=== PATIENT | male | born 1975 | race Caucasian/White ===

== ENCOUNTER 2020-07-23 08:01 | Outpatient (NON) | payer OTHER, SELFPAY ==
[2020-07-23 19:20] LABS: SARS-CoV-2 RNA PCR Negative
== END 2020-07-23 08:02 ==
PROVIDERS: Visit Provider Clinical Nurse Specialist
DX: R05 Cough (principal); Z20.828 Contact with and (suspected) exposure to other viral communicable diseases
CPT/HCPCS: 87635; C9803; U0003

== ENCOUNTER 2021-04-01 12:04 | Observation (INO) | payer OTHER, SELFPAY ==
[2021-04-01] VITALS (17 sets, daily range): BP systolic 80–155; BP diastolic 40–96; PULSE 50–126; RESP 10–24; TEMP 36.1–38.3; O2SAT 85–100; BMI 31.6
--- NOTE | ~2021-04-01 | XR_ITS ---
XR chest 2V 04/01/2021 12:50 Indication: Fever and chest pain Procedure: 2 view chest Comparison: 07/25/2017 Findings: There is opacification of the left upper lung zone medially. Status post median sternotomy. Cardiomegaly. Right lung clear. No pneumothorax or pleural effusion. No acute osseous abnormality. Impression: 1: Opacification left upper lung zone which may represent atelectasis and/or pneumonia. Reviewed, dictated and finalized at location A. Impression: 1: Opacification left upper lung zone which may represent atelectasis and/or pn eumonia.
--- NOTE | ~2021-04-01 | CT_ITS ---
EXAMINATION: CTA chest DATE: 04/01/2021 22:24 INDICATION: Chest pain TECHNIQUE: Computed tomography (CT) of the chest was performed with 100 cc Omnipaque 350 intravenous contrast. Automated exposure control and iterative reconstruction technique were employed. Exam dose: 428.18 mGy-cm total exam DLP. COMPARISON: 04/01/2021 AP and lateral chest 08/04/2017 PA and lateral chest FINDINGS: Status post sternotomy. There is extensive consolidation in the apical posterior left upper lobe, with air bronchograms and n o evidence of obstructing endobronchial lesion. The findings suggest extensive left upper lobe consol idating pneumonia. Continued follow-up is recommended to ensure clearing. There is mild infiltrate or atelectasis in the dependent left lower lobe and mild discoid atelectasis in the dependent right lower lobe. Calcified right upper lobe pulmonary granuloma. Calcified right hilar and subcarinal nodes. Mildly prominent left hilar and mediastinal lymph nodes may be reactive. Heart size appears within normal range. No pericardial effusion. There is a small left pleural effusi on. No thoracic aortic aneurysm or dissection. Diffuse hepatic steatosis. Diffuse idiopathic skeletal hyperostosis of the lower thoracic spine. IMPRESSION: Extensive left upper lobe consolidation, likely secondary to pneumonia. Continued radiog raphic follow-up is recommended to ensure clearing Reviewed, dictated and finalized at [facility]. Reviewed, dictated and finalized at location A. IMPRESSION: Extensive left upper lobe consolidation, likely secondary to pneum onia. Continued radiographic follow-up is recommended to ensure clearing
[2021-04-01 12:50] LABS: Basophils Percent Auto 0.2 % (0.2-1.2); Eosinophils Absolute Auto 0.1 K/mm3 (0-0.3); Hematocrit 46.2 % (42.0-52.0); Hemoglobin 15.2 g/dL (14.0-18.0); Immature Granulocyte Absolute 0.05 K/mm3 (0.00-0.031); Immature Granulocyte Percent A 0.4 % (0-0.5); Lymphocytes Absolute Auto 0.76 K/mm3 (0.9-3.2); Lymphocytes Percent Auto 5.6 % (18.3-44.2); Mean Corpuscular HGB Conc 32.9 g/dl (32-36); Mean Corpuscular Hemoglobin 30.3 pg (26-34); Mean Platelet Volume 10.8 fl (7.4-10.4); Monocytes Absolute Auto 0.3 K/mm3 (0.1-0.6); Monocytes Percent Auto 2.2 % (2.6-8.5); Neutrophils Absolute Auto 12.2 K/mm3 (1.3-6.7); Neutrophils Percent Auto 90.6 % (45.5-73.1); Platelet Count Result 188 k/mm3 (150-375); Red Blood Count 5.02 M/mm3 (4.6-6.20); Red Cell Distribution Width 12.9 % (11.5-14.5); White Blood Count 13.5 K/mm3 (4.5-10.0)
--- NOTE | 2021-04-01 13:02 | ECG_ITS ---
Measurements Intervals [place] Rate: 120 P: 79 AL: 108 QRS: 130 QRSD: 90 T: 86 QT: 339 QTc: 480 Interpretive Statements SINUS TACHYCARDIA WITH SHORT AL INTERVAL INCOMPLETE RIGHT BUNDLE BRANCH BLOCK BORDERLINE R WAVE PROGRESSION, ANTERIOR LEADS HIGH LATERAL INFARCT, AGE INDETERMINATE BASELINE ARTIFACT- I, II, III, AVR, AVL, AVF, V1 ABNORMAL ECG Electronically Signed On 04-01-2021 13:13:09 CDT by Og Minor D.O.
--- NOTE | 2021-04-01 13:05 | ED.GENADULT ---
HPI - General Adult General Chief complaint: Fever Stated complaint: chest pain Time Seen by Provider: 04/01/21 12:05 Source: patient History of Present Illness HPI narrative: Patient is a 46 y/o male complaining of chest pain starting earlier today. He describes his pain as pressure and rates it as 8/10. He took Aspirin, which did not help with his pain. He also has headache, back pain and difficulty with urination. He is not aware that he has a fever prior to arrival. He has no cough or SOB. Related Data Home Medications Medication Instructions Recorded Confirmed No Home Medications 07/22/20 07/22/20 Allergies Allergy/AdvReac Type Severity Reaction Status Date / Time ciprofloxacin Allergy Severe SWELLING Verified 04/01/21 16:59 NSAIDS (Non-Steroidal Allergy Unknown Swelling Verified 04/01/21 16:59 Anti-Inflamma Review of Systems Constitutional: Constitutional: Denies chills, Denies fever(s), Reports headache(s), Reports malaise and Denies weakness Eyes: Eyes: Denies blurry vision ENT: Reports headache(s) and Denies neck pain Cardiovascular: Cardiovascular: Reports chest pain and Denies dyspnea Respiratory: Respiratory: Denies cough and Denies dyspnea Gastrointestinal: Gastrointestinal: Denies abdominal pain, Denies diarrhea, Denies nausea and Denies vomiting Genitourinary: Genitourinary: Denies hematuria and Reports dysuria Musculoskeletal: Musculoskeletal: Denies back pain and Denies neck pain Neurologic: Reports headache(s) and Denies weakness [facility] Surgical History Surgical History History of ankle surgery Right Family History Family History (Updated 04/01/21 @ 16:42 by Gerard Clarke RN) Mother Breast cancer Hypertension Father Coronary artery disease Social History Social History Smoking packs per day: 0.5 Smoking cigarettes per day: 10.0 Years smoked: 20 Smoking pack-years: 10.00 Smoking status: Current every day smoker Alcohol intake: current Drinks per week: 14 Substance use type: marijuana Other substance usage details: gram/day Last use: Tuesday Gender identity (if verbalized by the patient): Male Spiritual care concerns: No Exam Const: General: no acute distress and well developed Orientation/consciousness: oriented to person, oriented to place, oriented to time and patient oriented x3 HENMT: Head: normocephalic Ears: external ears normal General nose exam: Normal external nose present Eyes: General: appearance normal, both eyes and all related structures Conjunctivae: conjunctivae normal Neck: Neck: normal visual inspection and full ROM Chest: Chest palpation & inspection: normal inspection of the chest and no tenderness Resp: Effort & Inspection: normal respiratory effort Auscultation: clear to auscultation bilaterally Cardio: Rate: tachycardic Rhythm: regular rhythm GI: GI Palp: No abdominal tenderness and Yes Soft to palpation Skin: General skin exam: normal color and turgor normal Neuro: General: oriented to person, oriented to place, oriented to time and patient oriented x3 Cognition (Neuro): normal cognition Extrem: General: normal to inspection, full ROM and no pedal edema Psych: Appearance: grossly normal Mental Status: mental status grossly normal Affect: normal affect Course Reevaluation(s) Reevaluation #1: Rechecked. Patient still complains of severe headache. Discussed with patient about LP to r/o meningitis. Patient declined. 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 Will continue to observe. Date: 04/01/21 Time: 14:35 Vital Signs Vital signs: Vital Signs Temperature 38.3 C H 04/01/21 12:15 Pulse Rate 126 H 04/01/21 12:15 Respiratory Rate 20 04/01/21 12:15 Blood Pressure 155/96 H 04/01/21 12:15 Pulse Oximetry 100 04/01/21 12:15 Temperature 36.1 C L 04/01/21 16
[2021-04-01 13:09] LABS: Lactic Acid Reflex 2.1 mmol/L (0.7-2.1)
[2021-04-01 13:21] LABS: Troponin I < 0.012 ng/mL (0.000-0.034)
[2021-04-01 13:28] LABS: INR 0.9; Prothrombin Time 12.5 Seconds (11.1-14.7)
[2021-04-01 13:29] LABS: Partial Thromboplastin Time 23.7 SECONDS (22.3-36.8)
[2021-04-01 13:56] LABS: Add Urine Microscopic? YES; Appearance Urine Clear (Clear); Bacteria Urine 1+ /hpf; Bilirubin Urine Negative (Negative); Blood Urine Negative (Negative); Color Urine Yellow (Yellow); Glucose Urine UA Negative (Negative); Ketones Urine Negative (Negative); Leukocyte Esterase Ur Negative LEU/UL (Negative); Mucus Urine Rare /lpf; Nitrate Urine Negative (Negative); Protein Urine 1+ mg/dL (Negative); Specific Grav Ur 1.018 (1.001-1.035); Urobilinogen Urine Negative mg/dL (<2.0); WBC Urine 0-3 /hpf
[2021-04-01 14:13] LABS: Alanine Aminotransferase 26 U/L (4-50); Albumin Level 4.4 g/dL (3.5-5.1); Alkaline Phosphatase 69 U/L (38-126); Anion Gap 11 mmol/L (8-16); Aspartate Amino Transferase 41 U/L (17-59); Bilirubin,Total 0.7 mg/dL (0.2-1.3); Blood Urea Nitrogen 17 mg/dL (9-20); Calcium 9.3 mg/dL (8.4-10.2); Carbon Dioxide 24 mmol/L (22-30); Chloride 99 mmol/L (98-107); Estimated CRCL calculation 77 ml/min; Estimated Glomerular Filt Rate > 60; Glucose 97 mg/dL (75-110); Potassium 4.7 mmol/L (3.4-5.0); Sodium 134 mmol/L (137-145)
[2021-04-01] MEDS: ACETAMINOPHEN 325 MG TABLET 650 MG PO (14:46)
[2021-04-01] MEDS: SODIUM CHLORIDE 0.9% IV 1,000 ML 999 ML IV CONT ×2 (14:47→20:50)
[2021-04-01 15:48] LABS: Reflex Lactic Acid Yes or No Add Lactic
--- NOTE | 2021-04-01 19:13 | ECG_ITS ---
Measurements Intervals [place] Rate: 116 P: 79 ID: 140 QRS: 134 QRSD: 90 T: 144 QT: 296 QTc: 412 Interpretive Statements SINUS TACHYCARDIA POSSIBLE LEFT ATRIAL ENLARGEMENT INCOMPLETE RIGHT BUNDLE BRANCH BLOCK BORDERLINE R WAVE PROGRESSION, ANTERIOR LEADS HIGH LATERAL INFARCT, AGE INDETERMINATE BASELINE ARTIFACT- I, II, III, AVR, AVL, AVF, V1 ABNORMAL ECG Electronically Signed On 04-01-2021 19:42:49 CDT by Og Minor D.O.
--- NOTE | 2021-04-01 19:16 | PC.NURSE ---
Pt complained of chest pain. Notified Rach Walker who asked for orders of baseline trop, 3 and 6 hour trops and a stat EKG. She stated she would be in to see him shortly.
[2021-04-01 20:10] LABS: Troponin I < 0.012 ng/mL (0.000-0.034)
--- NOTE | 2021-04-01 20:30 | PM.IMHP ---
H&P: HPI History of Present Illness Date/Time: 04/01/21 20:30 Chief Complaint: fever and chest pain Narrative: Male with past medical history multi-vessel coronary artery disease status post CABG who presented to the ER with fever and chest pain. The patient reported that started on the night of the he began feeling feverish. He developed the left-sided chest pain that is pressure-like in nature and radiated through to his back and down his left arm. He reported that his shoulder hurts so bad that he did not want to move it. However moving his shoulder does not seem to worsen the pain. He reports that he has been nauseated since last night but has not been having any vomiting. He has not noticed a loss of sense of taste or smell. He does have an occasional cough that has been productive of brown sputum. He continues to smoke at least a half a pack of cigarettes per day. He denies any known COVID exposures. He has not had the COVID vaccine. He denies any recent vomiting. He has been having chronic constipation for the last several years. He has had several years of increased urinary frequency difficulty starting his urinary stream and dribbling of urine. He felt his usual health on the day of the and actually spent 5 hours as side putting in a pool. He drink plenty of fluids. On arrival to the ER the patient's temperature was 101?. He a was tachycardic and tachypneic. To have episodes of breath holding due to his chest discomfort. He received a liter of IV fluids in the ER as well as azithromycin and Rocephin. After he arrived to the medical floor the patient became hypoxic with oxygen saturations down to 85%. His blood pressures dropped to the mid 90s systolic on his right arm. A 2nd normal saline bolus had already been ordered and was just starting to infuse at the time of the vitals. When he arrived to the medical floor he was reporting 9/10 chest pain. The pain was not pleuritic in nature. Initially did seem to have some reproducible chest pain to palpation but on repeat exam he denied reproducibility. 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 Review of Systems Review of Systems: Narrative: 12 systems were reviewed with pertinent positives and negatives per HPI. Except as documented in the HPI, all other systems were reviewed and are negative. [facility] Past Medical History Medical History (Updated 04/01/21 @ 22:45 by Nasrin Hutton DO) Coronary artery disease Essential hypertension Hyperlipidemia Ischemic cardiomyopathy Echocardiogram July 2017 EF of 50% with hypokinetic apical and anterior segment, diastolic dysfunction present, EF on cardiac catheterization July 2017 was 30% Non-adherence to medical treatment Paroxysmal atrial fibrillation Tobacco use disorder, continuous Surgical History Surgical History (Updated 04/01/21 @ 22:43 by Nasrin Hutton DO) History of ankle surgery Right History of cardiac catheterization July 2012, single-vessel coronary artery disease with subtotal ostial stenosis of LAD, cardiac catheterization June 2017 2 cardiac stents placed at [facility], cardiac catheterization July 2017 at [facility] 80% diffuse stenosis proximal LAD, 100% stenosis of recently paste saphenous vein graft/diagonal stents secondary to thrombus (non adherent to Brilinta) 100% thrombotic occlusion of saphenous vein graft to diagonal branch with stent thrombus, SHEKHAR to obtuse marginal known to be occluded from previous angiogram, patent WOODY to LAD, History of heart artery stent x5 most recent cardiac catheterization July 2017 demonstrated high-grade stenosis proximal segment of the LAD with occluded diagonal stents, patent ramus and left circumflex stents, RCA dominant with no significant stenosis, saphenous vein graft to diagonal occluded with heavy thrombus burden with occluded stents in the saphenous vein graft, woody to LAD patent, SHEKHAR
[2021-04-01 20:51] LABS: Creatine Kinase 90 U/L (55-170)
[2021-04-01 21:12] LABS: Ethanol < 10 mg/dL (<10)
[2021-04-01] MEDS: MORPHINE SULFATE (*CRX) 2 MG/ML INJ IV PUSH (21:22)
[2021-04-01 22:02] LABS: Barbiturate Screen Urine Negative (Negative); Benzodiazepines Screen Urine Negative (Negative)
[2021-04-01 22:30] LABS: Troponin I < 0.012 ng/mL (0.000-0.034)
[2021-04-01 22:40] LABS: Cannabinoid Screen Urine Positive (Negative); Cocaine Screen Urine Negative (Negative); Methadone Screen Urine Negative (Negative); Opiate Screen Urine Negative (Negative); Phencyclidine Screen Urine Negative (Negative)
[2021-04-01 23:23] LABS: Glucose Point of Care 88 mg/dl (65-105)
[2021-04-01] MEDS: SODIUM CHLORIDE 0.9% IV 1,000 ML 125 ML IV CONT (23:35)
[2021-04-02] VITALS (14 sets, daily range): BP systolic 109–131; BP diastolic 62–80; PULSE 88–120; RESP 18–22; TEMP 36.6–37.3; O2SAT 94–100
[2021-04-02 01:39] LABS: Troponin I < 0.012 ng/mL (0.000-0.034)
[2021-04-02] MEDS: IPRATROPIUM BR 0.02% INH SOLN 0.5 MG/2.5 ML VIAL INHALATION ×3 (02:06→14:07)
[2021-04-02] MEDS: SODIUM CHLORIDE 0.9% IV 1,000 ML 125 ML IV CONT ×2 (06:14→21:55)
[2021-04-02 06:15] LABS: Hematocrit 35.9 % (42.0-52.0); Hemoglobin 12.3 g/dL (14.0-18.0); Mean Corpuscular HGB Conc 34.3 g/dl (32-36); Mean Corpuscular Hemoglobin 30.3 pg (26-34); Mean Corpuscular Volume 88.4 fl (80-100); Mean Platelet Volume 11.1 fl (7.4-10.4); Platelet Count Result 146 k/mm3 (150-375); Red Blood Count 4.06 M/mm3 (4.6-6.20); Red Cell Distribution Width 12.9 % (11.5-14.5); White Blood Count 16.8 K/mm3 (4.5-10.0)
[2021-04-02 06:36] LABS: Anion Gap 7 mmol/L (8-16); Blood Urea Nitrogen 11 mg/dL (9-20); Calcium 8.2 mg/dL (8.4-10.2); Carbon Dioxide 22 mmol/L (22-30); Chloride 104 mmol/L (98-107); Cholesterol 103 mg/dL (0-200); Estimated CRCL calculation 84 ml/min; Estimated Glomerular Filt Rate > 60; Glucose 110 mg/dL (75-110); HDL Direct 46 mg/dL; Potassium 3.9 mmol/L (3.4-5.0); Sodium 133 mmol/L (137-145); Triglycerides 55 mg/dL (<150)
[2021-04-02 06:45] LABS: LDL Cholesterol Direct 36 mg/dL
--- NOTE | 2021-04-02 08:15 | ADMGEN ---
This patient, Steve Bernard, was admitted to [facility] Surg Room 326-01 at 1615 04/01/21. Patient/family oriented to hospital policies and general routines including ID bracelet, bed and alarms, visiting hours, pain management, procedures, bathroom and other care routines, personal items, smoking policy, room service/diet, and visiting hours. Information on how to activate the Rapid Response Team has been discussed. Patient/Family are encouraged to report perceived risks to care and to ask questions if they do not understand what they are told or what they should do.
[2021-04-02] MEDS: TAMSULOSIN HCL 0.4 MG CAPSULE PO (09:16)
[2021-04-02] MEDS: ASPIRIN 81 MG CHEWABLE TABLET PO (09:16)
[2021-04-02] MEDS: CLOPIDOGREL BISULFATE 75 MG TABLET PO (09:16)
[2021-04-02] MEDS: ACETAMINOPHEN 325 MG TABLET 650 MG PO ×2 (09:16→21:52)
[2021-04-02] MEDS: ENOXAPARIN 40 MG/0.4 ML SYRINGE SUB-Q (09:19)
--- NOTE | 2021-04-02 10:27 | PM.IMPN ---
Progress Note: A&P Assessment and Plan (1) Acute respiratory failure with hypoxia: Code(s): J96.01 - Acute respiratory failure with hypoxia Status: Acute Assessment and Plan: Patient has acute hypoxic respiratory failure due to underlying pneumonia. He may have some underlying COPD given his tobacco use history. He was hypoxic down to 85% and required 2 L supplemental O2. Currently been weaned to room air and maintaining adequate oxygen saturations. Continue scheduled nebulizer treatments with Xopenex and Atrovent. Supplemental oxygen available as needed with goal saturation 92% or above Additional plan as outlined below He will benefit from outpatient pulmonary function testing. (2) Pneumonia of left upper lobe due to infectious organism: Code(s): J18.9 - Pneumonia, unspecified organism Status: Acute Assessment and Plan: CXR with opacification of left upper lung zone, also evident on CTA with extensive left upper lobe consolidation. Continue empiric antibiotic therapy with ceftriaxone and azithromycin Isolation precautions with COVID test pending Will check urinary Legionella and pneumococcal antigens. Supportive care to include antipyretics, expectorants, bronchodilators, incentive spirometry Recommendations for repeat CXR in 1 month based on extensive consolidation noted on CTA. (3) Sepsis: Qualifiers: Acute respiratory failure type: with hypoxia Sepsis acute organ dysfunction status: with acute organ dysfunction Sepsis type: sepsis due to unspecified organism Severe sepsis acute organ dysfunction type: acute respiratory failure Severe sepsis shock status: without septic shock Qualified Code(s): A41.9 - Sepsis, unspecified organism; R65.20 - Severe sepsis without septic shock; J96.01 - Acute respiratory failure with hypoxia Code(s): A41.9 - Sepsis, unspecified organism Status: Acute Assessment and Plan: The patient has sepsis based on criteria including lactic acidosis, leukocytosis, tachypnea, tachycardia and fever (Tmax 101?). Source of infection is pneumonia. The patient's blood pressures improved with 2nd fluid bolus and currently stable with last BP 117/80. Lactic improved to 2.0. He has been afebrile today. Blood cultures are pending. Will discontinue IV fluids as vital signs have improved, he is tolerating oral intake, and has edema of upper extremities. Monitor vital signs, urine output, and labs (4) Chest pain: Qualifiers: Chest pain type: unspecified Qualified Code(s): R07.9 - Chest pain, unspecified Code(s): R07.9 - Chest pain, unspecified Status: Acute Assessment and Plan: Resolved. Chest pain is likely due to left-sided pneumonia. Troponin negative x3. Repeat EKG with no significant change from baseline. CTA was performed given chest pain in combination with hypoxia and tachycardia, results discussed with radiologist who reports images negative for PE with decreased sensitivity in small subsegmental pulmonary arteries. He has history of CAD and is not compliant with medication regimen. Monitor clinically Resume dual anti-platelet therapy with aspirin and Plavix (5) Tobacco use disorder, continuous: Code(s): F17.209 - Nicotine dependence, unspecified, with unspecified nicotine-induced disorders Status: Acute Assessment and Plan: Reports smoking 1/2 pack per day. Declines need for nicotine patch at this time. 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 (7) BPH (benign prostatic hyperplasia): Qualifiers: Lower urinary tract symptom presence:
[2021-04-02 17:59] LABS: SARS-CoV-2 RNA PCR Negative
[2021-04-02] MEDS: guaiFENesin 12 HR 600 MG TABCR PO (21:51)
[2021-04-03 06:00] VITALS: BP 143/83; PULSE 88; RESP 20; TEMP 36.6; O2SAT 98
[2021-04-03] MEDS: SODIUM CHLORIDE 0.9% IV 1,000 ML 125 ML IV CONT (06:08)
[2021-04-03 06:39] LABS: Hematocrit 37.2 % (42.0-52.0); Hemoglobin 12.4 g/dL (14.0-18.0); Mean Corpuscular HGB Conc 33.3 g/dl (32-36); Mean Corpuscular Hemoglobin 29.8 pg (26-34); Mean Corpuscular Volume 89.4 fl (80-100); Mean Platelet Volume 10.8 fl (7.4-10.4); Platelet Count Result 151 k/mm3 (150-375); Red Blood Count 4.16 M/mm3 (4.6-6.20); White Blood Count 11.2 K/mm3 (4.5-10.0)
[2021-04-03 06:58] LABS: Alanine Aminotransferase 33 U/L (4-50); Albumin Level 3.4 g/dL (3.5-5.1); Alkaline Phosphatase 72 U/L (38-126); Anion Gap 8 mmol/L (8-16); Aspartate Amino Transferase 28 U/L (17-59); Bilirubin,Total 0.5 mg/dL (0.2-1.3); Blood Urea Nitrogen 8 mg/dL (9-20); Calcium 8.5 mg/dL (8.4-10.2); Carbon Dioxide 21 mmol/L (22-30); Chloride 106 mmol/L (98-107); Estimated CRCL calculation 93 ml/min; Estimated Glomerular Filt Rate > 60; Glucose 132 mg/dL (75-110); Potassium 4.2 mmol/L (3.4-5.0); Sodium 135 mmol/L (137-145)
--- NOTE | 2021-04-03 07:55 | PCRCNOTE ---
Pt has been ref tx's. He wants them dc'd.
[2021-04-03] MEDS: ASPIRIN 81 MG CHEWABLE TABLET PO (09:33)
[2021-04-03] MEDS: TAMSULOSIN HCL 0.4 MG CAPSULE PO (09:33)
[2021-04-03] MEDS: guaiFENesin 12 HR 600 MG TABCR PO (09:33)
[2021-04-03] MEDS: CLOPIDOGREL BISULFATE 75 MG TABLET PO (09:33)
[2021-04-03] MEDS: ENOXAPARIN 40 MG/0.4 ML SYRINGE SUB-Q (09:34)
--- NOTE | 2021-04-03 10:47 | PM.DS ---
DS: Admitting Diagnosis Admitting Diagnosis Admitting Diagnosis: Community acquired pneumonia DS: Discharge Diagnosis Discharge Diagnosis (1) Acute respiratory failure with hypoxia: Code(s): J96.01 - Acute respiratory failure with hypoxia Status: Acute Assessment and Plan: Presented with acute hypoxic respiratory failure due to underlying pneumonia. He may have underlying COPD given his tobacco use history. He was hypoxic down to 85% and required 2 L supplemental O2, which was weaned to room air and he maintained adequate oxygen saturations on room air. Treated with nebulized breathing treatments. Recommend outpatient pulmonary function testing. (2) Pneumonia of left upper lobe due to infectious organism: Code(s): J18.9 - Pneumonia, unspecified organism Status: Acute Assessment and Plan: CXR with opacification of left upper lung zone, also evident on CTA with extensive left upper lobe consolidation. He was treated with empiric ceftriaxone and azithromycin. COVID test negative. Supportive care provided including expectorants, bronchodilators, and incentive spirometry. He will continue PO azithromycin and augmentin as an outpatient. Recommendations for repeat CXR in 1 month based on extensive consolidation noted on CTA. (3) Sepsis: Qualifiers: Acute respiratory failure type: with hypoxia Sepsis acute organ dysfunction status: with acute organ dysfunction Sepsis type: sepsis due to unspecified organism Severe sepsis acute organ dysfunction type: acute respiratory failure Severe sepsis shock status: without septic shock Qualified Code(s): A41.9 - Sepsis, unspecified organism; R65.20 - Severe sepsis without septic shock; J96.01 - Acute respiratory failure with hypoxia Code(s): A41.9 - Sepsis, unspecified organism Status: Acute Assessment and Plan: Resolved. The patient had sepsis based on criteria including lactic acidosis, leukocytosis, tachypnea, tachycardia and fever (Tmax 101?). Source of infection was pneumonia. The patient's blood pressures stabilized with fluid bolus. Fever resolved. Leukocytosis improved. Lactic improved to 2.0. Preliminary blood cultures negative to date and final cultures will be monitored. (4) Chest pain: Qualifiers: Chest pain type: unspecified Qualified Code(s): R07.9 - Chest pain, unspecified Code(s): R07.9 - Chest pain, unspecified Status: Acute Assessment and Plan: Resolved. Chest pain was likely due to left-sided pneumonia. Troponin negative x3. Repeat EKG with no significant change from baseline. CTA was performed given chest pain in combination with hypoxia and tachycardia, results discussed with radiologist who reports images negative for PE with decreased sensitivity in small subsegmental pulmonary arteries. (5) Coronary artery disease: Code(s): I25.10 - Atherosclerotic heart disease of [place] coronary artery without angina pectoris Status: Inactive Assessment and Plan: He has extensive cardiac history including CABG and multiple stents. Last cardiology follow-up was February 2019. He had not been compliant with his medications. I spoke with his workers compensation adjuster office who recommended continuing aspirin. He will need to follow-up with his workers compensation adjuster as soon as possible. (6) Tobacco use disorder, continuous: Code(s): F17.209 - Nicotine dependence, unspecified, with unspecified nicotine-induced disorders Status: Acute Assessment and Plan: Reports smoking 1/2 pack per day. Declined need for nicotine patch during hospitalization. Discussed smoking cessation at length and he verbalized understanding. (7) Non-adherence to medical treatment: Code(s): Z91.19 - Patient's noncompliance with other medical treatment and regimen Status: Acute Assessment and Plan: As above. Reinforced importance of adhering to medication regimen. (8)
== END 2021-04-03 12:00 | disposition home or self-care (01) ==
LOC: ANHED 13:02 → ANH3MEDSUR 15:27
PROVIDERS: Internal Medicine; Physician Assistant; Admitting Provider Internal Medicine; Emergency Provider Emergency Medicine; PCP Internal Medicine; Visit Provider Family Medicine
DX: J18.9 Pneumonia, unspecified organism (principal); J96.01 Acute respiratory failure with hypoxia; I25.10 Atherosclerotic heart disease of native coronary artery without angina pectoris; E78.5 Hyperlipidemia, unspecified; F12.90 Cannabis use, unspecified, uncomplicated; F17.290 Nicotine dependence, other tobacco product, uncomplicated; I25.5 Ischemic cardiomyopathy; I10 Essential (primary) hypertension; I48.91 Unspecified atrial fibrillation; N40.1 Benign prostatic hyperplasia with lower urinary tract symptoms; R33.8 Other retention of urine; Z79.02 Long term (current) use of antithrombotics/antiplatelets; Z95.1 Presence of aortocoronary bypass graft; Z91.19 Patient's noncompliance with other medical treatment and regimen; Z20.822 Contact with and (suspected) exposure to COVID-19
CPT/HCPCS: 36415; 71046; 71275; 80048; 80053; 80061; 80307; 81001; 82550; 82948; 83605; 84484; 85025; 85027; 85610; 85730; 86140; 87040; 93005; 94640; 96360; 96361; 96365; 96367; 96372; 96375; 99285; A9270; C9803; G0378; J0456; J0696; J1650; J2270; J7030; Q9967; U0003; U0005

== ENCOUNTER 2021-04-19 11:55 | Emergency (ER) | payer OTHER, SELFPAY ==
[2021-04-19 12:02] VITALS: BP 126/83; PULSE 99; RESP 16; TEMP 36.4; O2SAT 99
--- NOTE | 2021-04-19 12:05 | ED.SKABFB ---
HPI - Skin/Abscess/Foreign Bdy General Chief complaint: Skin/Abscess/Foreign Body Stated complaint: rash Time Seen by Provider: 04/19/21 12:05 Source: patient and RN notes reviewed Mode of arrival: ambulatory Limitations: no limitations History of Present Illness HPI narrative: 46-year-old male presents concern for rash. Reports generalized itchy rash after being exposed to poison genna or sumac. Reports rash started yesterday and spread to bilateral upper extremities, lower extremities, torso, face. He denies any trouble breathing, trouble swallowing, swollen lips, swollen tongue, fever, nausea, vomiting, diarrhea. MD complaint: rash Related Data Allergies Allergy/AdvReac Type Severity Reaction Status Date / Time ciprofloxacin Allergy Severe SWELLING Verified 04/19/21 12:07 NSAIDS (Non-Steroidal Allergy Unknown Swelling Verified 04/19/21 12:07 Anti-Inflamma Review of Systems Review of Systems: Narrative: CONSTITUTIONAL: Denies malaise, chills, sweats, or fever. EYES: Denies visual changes, redness, or discharge. ENT: Denies rhinorrhea, congestion, swollen lips, swollen tongue CARDIOVASCULAR: Denies chest pain, palpitations, or edema. RESPIRATORY: Denies cough or dyspnea. GASTROINTESTINAL: Denies abdominal pain, nausea, vomiting, diarrhea SKIN: Reports generalized itchy rash MUSCULOSKELETAL: Denies myalgia. All systems reviewed & are unremarkable except as noted in HPI and below PMFSH Past Medical History Medical History (Updated 04/19/21 @ 12:13 by Nydia Anderson NP) Coronary artery disease Essential hypertension Hyperlipidemia Ischemic cardiomyopathy Echocardiogram July 2017 EF of 50% with hypokinetic apical and anterior segment, diastolic dysfunction present, EF on cardiac catheterization July 2017 was 30% Non-adherence to medical treatment Paroxysmal atrial fibrillation Tobacco use disorder, continuous Surgical History Surgical History (Updated 04/13/21 @ 08:46 by Casandra Arndt NP) History of ankle surgery Right History of cardiac catheterization July 2012, single-vessel coronary artery disease with subtotal ostial stenosis of LAD, cardiac catheterization June 2017 2 cardiac stents placed at seen at the [facility] in [place], cardiac catheterization July 2017 at [facility] 80% diffuse stenosis proximal LAD, 100% stenosis of recently paste saphenous vein graft/diagonal stents secondary to thrombus (non adherent to Brilinta) 100% thrombotic occlusion of saphenous vein graft to diagonal branch with stent thrombus, SHEKHAR to obtuse marginal known to be occluded from previous angiogram, patent WOODY to LAD, History of heart artery stent x5 most recent cardiac catheterization July 2017 demonstrated high-grade stenosis proximal segment of the LAD with occluded diagonal stents, patent ramus and left circumflex stents, RCA dominant with no significant stenosis, saphenous vein graft to diagonal occluded with heavy thrombus burden with occluded stents in the saphenous vein graft, woody to LAD patent, SHEKHAR to obtuse marginal known to be occluded from previous angiogram severe left ventricular systolic dysfunction with EF of 30% History of repair of ACL S/P CABG (coronary artery bypass graft) (~2008) 3 vessel; performed in [place], saphenous vein graft to diagonal, WOODY to LAD, SHEKHAR to obtuse marginal Family History Family History Mother Breast cancer Hypertension Father Coronary artery disease Social History Social History (Updated 04/01/21 @ 22:52 by Nasrin Hutton DO) Social History: He lives in [place] with his of 20 years. They have daughters who are twins and her approximately 8 years old. He has smoked since he was a teenager and continues to do so. He smokes marijuana on a somewhat frequent basis. He has at least moderate alcohol use. Primary care physician: None Code status: Full code Surrogate lorna
== END 2021-04-19 12:27 | disposition home or self-care (01) ==
PROVIDERS: Emergency Provider Nurse Practitioner; PCP Internal Medicine
DX: L24.7 Irritant contact dermatitis due to plants, except food (principal); F17.210 Nicotine dependence, cigarettes, uncomplicated; I25.10 Atherosclerotic heart disease of native coronary artery without angina pectoris; I10 Essential (primary) hypertension; E78.5 Hyperlipidemia, unspecified; I48.91 Unspecified atrial fibrillation; I25.5 Ischemic cardiomyopathy
CPT/HCPCS: 99213; G0463

== ENCOUNTER 2021-05-14 11:54 | Outpatient (CLI) | payer OTHER, SELFPAY ==
--- NOTE | ~2021-05-14 | XR_ITS ---
EXAMINATION: XR chest 2V 05/14/2021 13:31 INDICATION: Shortness of breath. Pneumonia. PROCEDURE: 2 view chest COMPARISON: Comparison to multiple prior studies sequentially, with oldest reviewed study dated 04/02. FINDINGS: The lungs are clear. The cardiomediastinal silhouette is within normal limits. There are no pleural effusions. There is no pneumothorax suspected. Calcified granuloma right upper chest. Th ere are median sternotomy wires. IMPRESSION: 1: NO ACUTE CARDIOPULMONARY DISEASE. Reviewed, dictated and finalized at location A.
[2021-05-14 12:08] LABS: Basophils Absolute Auto 0.1 K/mm3 (0.0-0.1); Eosinophils Absolute Auto 0.4 K/mm3 (0-0.3); Hematocrit 45.2 % (42.0-52.0); Hemoglobin 14.8 g/dL (14.0-18.0); Immature Granulocyte Absolute 0.01 K/mm3 (0.00-0.031); Immature Granulocyte Percent A 0.1 % (0-0.5); Lymphocytes Absolute Auto 2.34 K/mm3 (0.9-3.2); Lymphocytes Percent Auto 32.9 % (18.3-44.2); Mean Corpuscular HGB Conc 32.7 g/dl (32-36); Mean Corpuscular Hemoglobin 29.8 pg (26-34); Mean Corpuscular Volume 90.9 fl (80-100); Mean Platelet Volume 10.2 fl (7.4-10.4); Monocytes Absolute Auto 0.6 K/mm3 (0.1-0.6); Monocytes Percent Auto 7.7 % (2.6-8.5); Neutrophils Absolute Auto 3.7 K/mm3 (1.3-6.7); Neutrophils Percent Auto 52.3 % (45.5-73.1); Platelet Count Result 218 k/mm3 (150-375); Red Blood Count 4.97 M/mm3 (4.6-6.20); Red Cell Distribution Width 13.4 % (11.5-14.5); White Blood Count 7.1 K/mm3 (4.5-10.0)
[2021-05-14 12:17] LABS: Alanine Aminotransferase 19 U/L (4-50); Albumin Level 4.1 g/dL (3.5-5.1); Alkaline Phosphatase 69 U/L (38-126); Anion Gap 9 mmol/L (8-16); Aspartate Amino Transferase 23 U/L (17-59); Bilirubin,Total 0.8 mg/dL (0.2-1.3); Blood Urea Nitrogen 16 mg/dL (9-20); Calcium 9.2 mg/dL (8.4-10.2); Carbon Dioxide 25 mmol/L (22-30); Chloride 105 mmol/L (98-107); Cholesterol 178 mg/dL (0-200); Estimated Glomerular Filt Rate > 60; Glucose 116 mg/dL (65-110); HDL Direct 45 mg/dL; Potassium 4.6 mmol/L (3.4-5.0); Sodium 139 mmol/L (137-145); Triglycerides 110 mg/dL (<150)
[2021-05-14 12:34] LABS: LDL Cholesterol Direct 112 mg/dL
[2021-05-14 13:19] LABS: Prostate Specific Antigen 0.9 ng/mL (< OR = 4.0)
--- NOTE | 2021-05-14 18:12 | WPDPFTINT ---
PFT Procedure Performed PFT Procedure Performed Plethysmography (Lung Vol) Diffusing Cap (DLCO) Flow Vol Loop Spirometry w/o Bronchodil PFT Interpretation This is a pulmonary function test with spirometry, plethysmography and diffusing capacity. The test was performed and results interpreted in accordance with the 2019 and 2005 ATS/ERS Task Force guidelines respectively using the Global Lung Function Initiative-2012 reference equations. Patient demonstrated good effort and cooperation. Reproducibility criteria were met. The quality of the spirometry maneuver was Grade B. Findings: Spirometry: The contour the inspiratory and expiratory flow tracing are normal. The FVC is 4.21 L, 95% predicted. The FEV1 is 2.99 L, 84% predicted. The FEV1: FVC ratio 71%. plethysmography: The total lung capacity is 7.79 L, 126% predicted. The functional residual capacity is 4.63 L, 151% predicted. The residual volume is 3.49 L, 198% predicted. diffusing capacity: The absolute diffusion capacity is 21.3, 72% predicted. The diffusing capacity corrected for alveolar volume is 4.00, 82% predicted. Impression: There is a mild obstructive abnormality. The increase in residual volume is consistent with air trapping from an obstructive abnormality. Hyperinflation is present is demonstrated by the increase in functional residual capacity and is consistent with an obstructive abnormality. The absolute diffusing capacity is mildly decreased and normalizes when corrected for alveolar volume. There are no prior studies for comparison
== END 2021-05-14 11:55 | disposition home or self-care (01) ==
PROVIDERS: PCP Internal Medicine; Visit Provider Nurse Practitioner
DX: Z13.220 Encounter for screening for lipoid disorders (principal); N40.1 Benign prostatic hyperplasia with lower urinary tract symptoms; R33.8 Other retention of urine; J18.9 Pneumonia, unspecified organism; R06.02 Shortness of breath
CPT/HCPCS: 36415; 71046; 80053; 80061; 84153; 85025; 94375; 94726; 94729

== ENCOUNTER 2021-07-10 19:19 | Emergency (ER) | payer OTHER, SELFPAY ==
[2021-07-10 19:25] VITALS: BP 142/91; PULSE 98; RESP 18; TEMP 36.2; O2SAT 100
--- NOTE | 2021-07-10 19:29 | ED.URI ---
HPI - URI/Sore Throat General Chief Complaint: Upper Respiratory Infection Stated Complaint: VISION LOSS Source: patient Mode of arrival: ambulatory Limitations: no limitations History of Present Illness HPI Narrative: Patient is a 46-year-old male who presents with loss of right peripheral vision, slurred speech and headache x 24 hours. Patient has long cardiac history with a history of stent placement and CABG. He denies chest pain or shortness of breath at this time. Patient reports a history of afib, patient also confirms he is non compliant with medications. at bedside. Patient has abnormal gait, however, possibly due to past ankle surgery. Patient denies taking bpwm-[id number]-[id number] medications prior to arrival. Related Data Allergies Allergy/AdvReac Type Severity Reaction Status Date / Time ciprofloxacin Allergy Severe SWELLING Verified 07/10/21 19:52 NSAIDS (Non-Steroidal Allergy Unknown Swelling Verified 07/10/21 19:52 Anti-Inflamma Review of Systems Review of Systems: CONSTITUTIONAL: Denies fever, chills, or sweats. EYES: Reports sudden loss of peripheral vision in right eye x1 day ENT: Denies rhinorrhea, congestion, sore throat, or otalgia. CARDIOVASCULAR: Denies chest pain, palpitations, or edema. RESPIRATORY: Denies cough or dyspnea. GASTROINTESTINAL: Denies abdominal pain, nausea, vomiting, or diarrhea. GENITOURINARY: Denies dysuria or hematuria. SKIN: Denies rash or itching. MUSCULOSKELETAL: Denies back pain, joint pain, or myalgia. NEUROLOGIC: Reports headache, denies numbness, dizziness, or weakness. PSYCHIATRIC: Denies anxiety or depression. [facility] Past Medical History Medical History Coronary artery disease Essential hypertension Hyperlipidemia Ischemic cardiomyopathy Echocardiogram July 2017 EF of 50% with hypokinetic apical and anterior segment, diastolic dysfunction present, EF on cardiac catheterization July 2017 was 30% Non-adherence to medical treatment Paroxysmal atrial fibrillation Tobacco use disorder, continuous Surgical History Surgical History History of ankle surgery Right History of cardiac catheterization July 2012, single-vessel coronary artery disease with subtotal ostial stenosis of LAD, cardiac catheterization June 2017 2 cardiac stents [place] [facility] [place] [facility] [place], cardiac catheterization July 2017 at [facility] 80% diffuse stenosis proximal LAD, 100% stenosis of recently paste saphenous vein graft/diagonal stents secondary to thrombus (non adherent to Brilinta) 100% thrombotic occlusion of saphenous vein graft to diagonal branch with stent thrombus, SHEKHAR to obtuse marginal known to be occluded from previous angiogram, patent MENDEZ to LAD, History of heart artery stent x5 most recent cardiac catheterization July 2017 demonstrated high-grade stenosis proximal segment of the LAD with occluded diagonal stents, patent ramus and left circumflex stents, RCA dominant with no significant stenosis, saphenous vein graft to diagonal occluded with heavy thrombus burden with occluded stents in the saphenous vein graft, mendez to LAD patent, SHEKHAR to obtuse marginal known to be occluded from previous angiogram severe left ventricular systolic dysfunction with EF of 30% History of repair of ACL S/P CABG (coronary artery bypass graft) (~2008) 3 vessel; performed in [place], saphenous vein graft to diagonal, MENDEZ to LAD, SHEKHAR to obtuse marginal Family History Family History Mother Breast cancer Hypertension Father Coronary artery disease Social History Social History Social History: He lives in [place] with his of 20 years. They have daughters who are twins and her approximately 8 years old. He has smoked since he was a teenager a
[2021-07-10 19:46] LABS: Glucose Point of Care 131 mg/dl (65-105)
--- NOTE | 2021-07-10 19:51 | ECG_ITS ---
Measurements Intervals [place] Rate: 80 P: 73 TN: 126 QRS: 129 QRSD: 106 T: 117 QT: 353 QTc: 408 Interpretive Statements SINUS RHYTHM POSSIBLE LEFT ATRIAL ENLARGEMENT INCOMPLETE RIGHT BUNDLE BRANCH BLOCK POOR R WAVE PROGRESSION, ANTERIOR LEADS HIGH LATERAL INFARCT, AGE INDETERMINATE BORDERLINE T WAVE ABNORMALITY- ANTEROLATERAL LEADS BASELINE ARTIFACT- I, II, AVR ABNORMAL ECG Electronically Signed On 07-10-2021 20:45:34 CDT by Og Minor D.O.
== END 2021-07-10 19:55 | disposition short-term general hospital (02) ==
PROVIDERS: Emergency Provider Nurse Practitioner; PCP Internal Medicine
DX: H53.451 Other localized visual field defect, right eye (principal); R51.9 Headache, unspecified; F17.210 Nicotine dependence, cigarettes, uncomplicated; I25.10 Atherosclerotic heart disease of native coronary artery without angina pectoris; I10 Essential (primary) hypertension; E78.5 Hyperlipidemia, unspecified; I48.0 Paroxysmal atrial fibrillation; I25.5 Ischemic cardiomyopathy
CPT/HCPCS: 82948; 93005; 99215; G0463

== ENCOUNTER 2021-07-10 20:07 | Emergency (ER) | payer OTHER, SELFPAY ==
--- NOTE | ~2021-07-10 | CT_ITS ---
EXAMINATION: CTA BRAIN/CAROTID DATE: 07/10/2021 23:32 INDICATION: Headache. Vision loss. TECHNIQUE: Computed tomographic angiography (CTA) of the head and neck was performed with 100 mL Omni paque-350 intravenous contrast. Multiplanar reconstructions and maximum intensity projection 3D-recon structions of the carotid arteries and of the intracranial arteries were created by the technologist on a separate workstation. Precontrast CT of the head was also obtained. Automated exposure control and iterative reconstruction technique were employed.The dose-length product was 1648.89 mGy-cm. COMPARISON: 06/13/2013 FINDINGS: Carotid arteries: Aortic arch is normal in caliber with no dissection. There is 0% stenosis of the right carotid bulb r elative to normal distal artery lumen diameter (NASCET criteria). There is 0% stenosis of the left ca rotid bulb relative to normal distal artery lumen diameter. Left vertebral artery is dominant. Cervic al soft tissues are unremarkable. Calcified right upper lobe nodule and calcified mediastinal lymph n odes consistent with old granulomatous disease.Mild lower cervical spondylosis. Median sternotomy wir es likely related to prior coronary artery bypass grafting. Head: Moderate-sized region of cytotoxic edema involving the medial left occipital lobe and posterior left temporal lobe consistent with acute infarct in the left posterior cerebral artery vascular distributi on. No acute intracranial hemorrhage or abnormal extra axial fluid collection. Ventricles are normal and symmetric. No mass/mass effect. The orbits, paranasal sinuses and mastoid air cells are normal. Intracranial arteries There is no hemodynamically significant stenosis or evident thrombosis in the vertebral, basilar and internal carotid arteries. Left vertebral artery is dominant. There are no aneurysms identified. Bot h A1 and P1 segments are patent. Cerebral arterial arborization appears symmetric. IMPRESSION: 1. 0% stenosis of the left and right carotid bulbs relative to normal distal artery lumen diameter (N ASCET criteria). 2. . Moderate-sized acute infarct in the left occipital and posterior temporal lobes in the vascular distribution of the left posterior cerebral artery. 3. Normal cerebral angiogram with no evident thrombosis, hematoma, significant stenosis or aneurysm. Reviewed, dictated and finalized at location A. IMPRESSION: 1. 0% stenosis of the left and right carotid bulbs relative to normal distal ar geena lumen diameter (NASCET criteria). 2. . Moderate-sized acute infarct in the left occipital and posterior temporal lobes in the vascular distribution of the left posterior cerebral artery. 3. Normal cerebral angiogram with no evident thrombosis, hematoma, significant stenosis or aneurysm.
--- NOTE | ~2021-07-10 | XR_ITS ---
EXAMINATION: XR chest 1V DATE: 07/10/2021 21:19 INDICATION: Coronary artery disease and hypertension presenting with headaches and neurologic deficit s. TECHNIQUE: PA view of the chest was obtained. COMPARISON: Chest radiograph date FINDINGS: Calcified right upper lobe nodules consistent with old granulomatous disease. No other airspace opaci ties, pulmonary edema, pleural effusion or pneumothorax. The cardiomediastinal silhouette is normal. Median sternotomy wires and mediastinal surgical clips are seen, likely from prior coronary artery by pass grafting. Mild thoracic spondylosis. IMPRESSION: 1. No acute cardiopulmonary disease. Reviewed, dictated and finalized at location A.
[2021-07-10 20:20] VITALS: BP 150/81; PULSE 90; RESP 18; TEMP 36.3; O2SAT 99
--- NOTE | 2021-07-10 20:23 | ECG_ITS ---
Measurements Intervals [place] Rate: 92 P: 74 VA: 155 QRS: 139 QRSD: 83 T: 117 QT: 332 QTc: 413 Interpretive Statements SINUS RHYTHM POSSIBLE LEFT ATRIAL ENLARGEMENT INCOMPLETE RIGHT BUNDLE BRANCH BLOCK CANNOT RULE OUT SEPTAL INFARCT, AGE INDETERMINATE HIGH LATERAL INFARCT, AGE INDETERMINATE BORDERLINE T WAVE ABNORMALITY- ANTEROLATERAL LEADS BASELINE ARTIFACT- II, AVF ABNORMAL ECG Electronically Signed On 07-11-2021 14:10:49 CDT by Og Minor D.O.
[2021-07-10 20:38] LABS: Basophils Absolute Auto 0.1 K/mm3 (0.0-0.1); Basophils Percent Auto 0.5 % (0.2-1.2); Eosinophils Absolute Auto 0.3 K/mm3 (0-0.3); Eosinophils Percent Auto 2.8 % (0-4.4); Hematocrit 45.3 % (42.0-52.0); Hemoglobin 15.8 g/dL (14.0-18.0); Immature Granulocyte Absolute 0.02 K/mm3 (0.00-0.031); Immature Granulocyte Percent A 0.2 % (0-0.5); Lymphocytes Absolute Auto 2.14 K/mm3 (0.9-3.2); Lymphocytes Percent Auto 20.3 % (18.3-44.2); Mean Corpuscular HGB Conc 34.9 g/dl (32-36); Mean Corpuscular Hemoglobin 31.6 pg (26-34); Mean Corpuscular Volume 90.6 fl (80-100); Monocytes Absolute Auto 0.8 K/mm3 (0.1-0.6); Monocytes Percent Auto 7.4 % (2.6-8.5); Neutrophils Absolute Auto 7.3 K/mm3 (1.3-6.7); Neutrophils Percent Auto 68.8 % (45.5-73.1); Platelet Count Result 197 k/mm3 (150-375); White Blood Count 10.5 K/mm3 (4.5-10.0)
[2021-07-10 20:40] LABS: Glucose Point of Care 110 mg/dl (65-105)
[2021-07-10 20:47] LABS: INR 0.9; Prothrombin Time 11.6 Seconds (11.1-14.7)
[2021-07-10 20:48] LABS: Anion Gap 8 mmol/L (8-16); Blood Urea Nitrogen 15 mg/dL (9-20); Calcium 9.1 mg/dL (8.4-10.2); Carbon Dioxide 26 mmol/L (22-30); Chloride 102 mmol/L (98-107); Estimated Glomerular Filt Rate > 60; Glucose 101 mg/dL (65-110); Partial Thromboplastin Time 24.7 SECONDS (22.3-36.8); Potassium 4.1 mmol/L (3.4-5.0); Sodium 136 mmol/L (137-145)
[2021-07-10 20:59] LABS: Troponin I < 0.012 ng/mL (0.000-0.034)
[2021-07-10 22:54] VITALS: BP 119/73; PULSE 71; RESP 18; O2SAT 100
[2021-07-10] MEDS: diphenhydrAMINE HCl INJ 50 MG/ML VIAL 25 MG IV PUSH (23:33)
[2021-07-10] MEDS: METOCLOPRAMIDE HCL INJ 10 MG/2 ML VIAL IV PUSH (23:34)
--- NOTE | 2021-07-10 23:56 | ED.HA ---
HPI - Headache General Chief Complaint: Headache Stated Complaint: JON, sent from urgent care Time Seen by Provider: 07/10/21 22:49 History of Present Illness HPI Narrative: Patient is a 46-year-old male with history of coronary disease who presents ER with headache and visual disturbance. Patient reports yesterday evening at 6 PM (over 24 hours ago), he began having visual disturbance where he cannot see in his peripheral vision on the right side in each eye. Is associated with throbbing headache. No trauma. Denies any other complaints. Headache waxes and wanes in intensity. Has not tried any pain medications. No additional complaints. Related Data Allergies Allergy/AdvReac Type Severity Reaction Status Date / Time ciprofloxacin Allergy Severe SWELLING Verified 07/10/21 19:52 NSAIDS (Non-Steroidal Allergy Unknown Swelling Verified 07/10/21 19:52 Anti-Inflamma Review of Systems Review of Systems: All systems reviewed & are unremarkable except as noted in HPI and below Constitutional: Constitutional: Denies chills, Denies fever(s) and Denies weakness Eyes: Eyes: Reports change in vision and Denies photophobia Comments: No flashers or floaters. Cardiovascular: Cardiovascular: Denies chest pain and Denies radiating jaw, neck or arm pain Gastrointestinal: Gastrointestinal: Denies abdominal pain, Denies nausea and Denies vomiting Neurologic: Denies dizziness, Denies syncope, Reports headache(s), Denies focal weakness and Denies numbness Comments: Visual disturbance PMFSH Past Medical History Medical History Coronary artery disease Essential hypertension Hyperlipidemia Ischemic cardiomyopathy Echocardiogram July 2017 EF of 50% with hypokinetic apical and anterior segment, diastolic dysfunction present, EF on cardiac catheterization July 2017 was 30% Non-adherence to medical treatment Paroxysmal atrial fibrillation Tobacco use disorder, continuous Surgical History Surgical History History of ankle surgery Right History of cardiac catheterization July 2012, single-vessel coronary artery disease with subtotal ostial stenosis of LAD, cardiac catheterization June 2017 2 cardiac stents placed at seen at the [facility] in [place], cardiac catheterization July 2017 at [facility] 80% diffuse stenosis proximal LAD, 100% stenosis of recently paste saphenous vein graft/diagonal stents secondary to thrombus (non adherent to Brilinta) 100% thrombotic occlusion of saphenous vein graft to diagonal branch with stent thrombus, SHEKHAR to obtuse marginal known to be occluded from previous angiogram, patent MENDEZ to LAD, History of heart artery stent x5 most recent cardiac catheterization July 2017 demonstrated high-grade stenosis proximal segment of the LAD with occluded diagonal stents, patent ramus and left circumflex stents, RCA dominant with no significant stenosis, saphenous vein graft to diagonal occluded with heavy thrombus burden with occluded stents in the saphenous vein graft, mendez to LAD patent, SHEKHAR to obtuse marginal known to be occluded from previous angiogram severe left ventricular systolic dysfunction with EF of 30% History of repair of ACL S/P CABG (coronary artery bypass graft) (~2008) 3 vessel; performed in [place], saphenous vein graft to diagonal, MENDEZ to LAD, SHEKHAR to obtuse marginal Family History Family History Mother Breast cancer Hypertension Father Coronary artery disease Social History Social History Social History: He lives in [place] with his of 20 years. They have daughters who are twins and her approximately 8 years old. He has smoked since he was a teenager and continues to do so. He smokes marijuana on a somewhat frequent basis. He has at least mod
[2021-07-11 00:17] VITALS: BP 122/79; PULSE 74; RESP 18; O2SAT 99
[2021-07-11 01:42] VITALS: BP 134/94; PULSE 94; RESP 16; O2SAT 95
--- NOTE | 2021-07-11 01:58 | PC.NURSE ---
report to sid hansen @ [facility] pt going to room # 012.
== END 2021-07-11 02:37 | disposition short-term general hospital (02) ==
PROVIDERS: Emergency Provider Emergency Medicine; PCP Internal Medicine
DX: I63.9 Cerebral infarction, unspecified (principal); H53.461 Homonymous bilateral field defects, right side; I25.10 Atherosclerotic heart disease of native coronary artery without angina pectoris; I10 Essential (primary) hypertension; E78.5 Hyperlipidemia, unspecified; I25.5 Ischemic cardiomyopathy; I48.0 Paroxysmal atrial fibrillation; Z95.5 Presence of coronary angioplasty implant and graft; Z95.1 Presence of aortocoronary bypass graft; F17.210 Nicotine dependence, cigarettes, uncomplicated; R94.31 Abnormal electrocardiogram [ECG] [EKG]; I45.10 Unspecified right bundle-branch block
CPT/HCPCS: 36415; 70496; 70498; 71045; 80048; 82948; 84484; 85025; 85610; 85730; 93005; 96365; 96375; 99285; J0131; J1200; J2765; Q9967

== ENCOUNTER 2022-06-01 10:41 | Outpatient (CLI) | payer OTHER, SELFPAY ==
[2022-06-01 20:50] LABS: Alanine Aminotransferase 22 U/L (6-50); Albumin Level 4.6 g/dL (3.5-5.1); Alkaline Phosphatase 71 U/L (38-126); Anion Gap 10 mmol/L (8-16); Aspartate Amino Transferase 31 U/L (17-59); Bilirubin,Total 0.7 mg/dL (0.2-1.3); Blood Urea Nitrogen 18 mg/dL (9-20); Calcium 8.8 mg/dL (8.4-10.2); Carbon Dioxide 26 mmol/L (22-30); Chloride 101 mmol/L (98-107); Cholesterol 204 mg/dL (0-200); Estimated Glomerular Filt Rate > 60; Glucose 90 mg/dL (65-110); HDL Direct 31 mg/dL; Potassium 4.2 mmol/L (3.4-5.0); Sodium 137 mmol/L (137-145); Triglycerides 219 mg/dL (<150)
[2022-06-01 20:57] LABS: Basophils Percent Auto 0.6 % (0.2-1.2); Eosinophils Absolute Auto 0.4 K/mm3 (0-0.3); Eosinophils Percent Auto 5.7 % (0-4.4); Hematocrit 45.5 % (42.0-52.0); Hemoglobin 15.5 g/dL (14.0-18.0); Immature Granulocyte Absolute 0.01 K/mm3 (0.00-0.031); Immature Granulocyte Percent A 0.2 % (0-0.5); Lymphocytes Percent Auto 29.4 % (18.3-44.2); Mean Corpuscular HGB Conc 34.1 g/dl (32-36); Mean Corpuscular Hemoglobin 31.2 pg (26-34); Mean Corpuscular Volume 91.5 fl (80-100); Mean Platelet Volume 11.4 fl (7.4-10.4); Monocytes Absolute Auto 0.7 K/mm3 (0.1-0.6); Monocytes Percent Auto 10.8 % (2.6-8.5); Neutrophils Absolute Auto 3.5 K/mm3 (1.3-6.7); Neutrophils Percent Auto 53.3 % (45.5-73.1); Platelet Count Result 229 k/mm3 (150-375); Red Blood Count 4.97 M/mm3 (4.6-6.20); Red Cell Distribution Width 13.5 % (11.5-14.5); White Blood Count 6.5 K/mm3 (4.5-10.0)
[2022-06-01 21:01] LABS: LDL Cholesterol Direct 111 mg/dL
[2022-06-01 21:32] LABS: Hemoglobin A1C 5.8 % (<5.7)
== END 2022-06-01 10:42 | disposition home or self-care (01) ==
LOC: ANHGOSHLAB 10:43
PROVIDERS: PCP Internal Medicine; Visit Provider Nurse Practitioner
DX: I25.119 Atherosclerotic heart disease of native coronary artery with unspecified angina pectoris (principal); Z13.29 Encounter for screening for other suspected endocrine disorder; R73.9 Hyperglycemia, unspecified
CPT/HCPCS: 36415; 80053; 80061; 83036; 85025

== ENCOUNTER 2022-12-08 08:53 | Outpatient (CLI) | payer OTHER, SELFPAY ==
[2022-12-08 18:53] LABS: Cholesterol 104 mg/dL (0-200); HDL Direct 31 mg/dL; Triglycerides 83 mg/dL (<150)
[2022-12-08 19:03] LABS: LDL Cholesterol Direct 51 mg/dL
== END 2022-12-08 08:54 | disposition home or self-care (01) ==
LOC: ANHGOSHLAB 08:55
PROVIDERS: PCP Internal Medicine; Visit Provider Nurse Practitioner
DX: R73.03 Prediabetes (principal); E78.2 Mixed hyperlipidemia
CPT/HCPCS: 36415; 80061; 83036

== ENCOUNTER 2023-06-09 08:52 | Outpatient (CLI) | payer OTHER, SELFPAY ==
[2023-06-09 17:11] LABS: Basophils Absolute Auto 0.1 K/mm3 (0.0-0.1); Basophils Percent Auto 0.7 % (0.2-1.2); Eosinophils Absolute Auto 0.3 K/mm3 (0-0.3); Eosinophils Percent Auto 4.4 % (0-4.4); Hematocrit 44.6 % (42.0-52.0); Hemoglobin 14.7 g/dL (14.0-18.0); Immature Granulocyte Absolute 0.02 K/mm3 (0.00-0.031); Immature Granulocyte Percent A 0.3 % (0-0.5); Lymphocytes Absolute Auto 2.26 K/mm3 (0.9-3.2); Lymphocytes Percent Auto 32.2 % (18.3-44.2); Mean Corpuscular Hemoglobin 30.6 pg (26-34); Mean Corpuscular Volume 92.9 fl (80-100); Mean Platelet Volume 11.8 fl (7.4-10.4); Monocytes Absolute Auto 0.6 K/mm3 (0.1-0.6); Monocytes Percent Auto 8.3 % (2.6-8.5); Neutrophils Absolute Auto 3.8 K/mm3 (1.3-6.7); Neutrophils Percent Auto 54.1 % (45.5-73.1); Platelet Count Result 211 k/mm3 (150-375); Red Cell Distribution Width 12.6 % (11.5-14.5)
[2023-06-09 17:13] LABS: Alanine Aminotransferase 22 U/L (6-50); Albumin Level 4.4 g/dL (3.5-5.1); Alkaline Phosphatase 60 U/L (38-126); Anion Gap 7 mmol/L (8-16); Aspartate Amino Transferase 33 U/L (17-59); Bilirubin,Total 0.7 mg/dL (0.2-1.3); Blood Urea Nitrogen 23 mg/dL (9-20); Calcium 8.8 mg/dL (8.4-10.2); Carbon Dioxide 26 mmol/L (22-30); Chloride 104 mmol/L (98-107); Cholesterol 189 mg/dL (0-200); Estimated Glomerular Filt Rate > 60; Glucose 100 mg/dL (65-110); HDL Direct 32 mg/dL; Potassium 4.3 mmol/L (3.4-5.0); Sodium 137 mmol/L (137-145); Triglycerides 139 mg/dL (<150)
[2023-06-09 17:24] LABS: LDL Cholesterol Direct 116 mg/dL
[2023-06-09 17:31] LABS: Hemoglobin A1C 5.7 % (<5.7)
[2023-06-09 17:40] LABS: Prostate Specific Antigen 0.9 ng/mL (< OR = 4.0)
[2023-06-14 05:05] LABS: Apolipoprotein B 108 mg/dL (<90)
== END 2023-06-09 08:53 | disposition home or self-care (01) ==
LOC: ANHGOSHLAB 08:54
PROVIDERS: PCP Internal Medicine; Visit Provider Internal Medicine
DX: E78.2 Mixed hyperlipidemia (principal); I10 Essential (primary) hypertension; I25.10 Atherosclerotic heart disease of native coronary artery without angina pectoris; R73.03 Prediabetes; R73.9 Hyperglycemia, unspecified; Z12.5 Encounter for screening for malignant neoplasm of prostate; Z86.73 Personal history of transient ischemic attack (TIA), and cerebral infarction without residual deficits
CPT/HCPCS: 36415; 80053; 80061; 82172; 83036; 84153; 85025; G0103

== ENCOUNTER 2023-12-20 09:36 | Outpatient (CLI) | payer OTHER, SELFPAY ==
[2023-12-20 13:14] LABS: Anion Gap 8 mmol/L (8-16); Blood Urea Nitrogen 17 mg/dL (9-20); Calcium 8.8 mg/dL (8.4-10.2); Carbon Dioxide 26 mmol/L (22-30); Chloride 105 mmol/L (98-107); Cholesterol 151 mg/dL (0-200); Estimated Glomerular Filt Rate > 60; Glucose 98 mg/dL (65-110); HDL Direct 29 mg/dL; Potassium 4.1 mmol/L (3.4-5.0); Sodium 139 mmol/L (137-145); Triglycerides 93 mg/dL (<150)
[2023-12-20 13:25] LABS: LDL Cholesterol Direct 107 mg/dL
[2023-12-24 06:06] LABS: Apolipoprotein B 90 mg/dL (<90)
== END 2023-12-20 09:37 | disposition home or self-care (01) ==
LOC: ANHGOSHLAB 09:37
PROVIDERS: PCP Internal Medicine; Visit Provider Internal Medicine
DX: E78.5 Hyperlipidemia, unspecified (principal); I25.10 Atherosclerotic heart disease of native coronary artery without angina pectoris; Z86.73 Personal history of transient ischemic attack (TIA), and cerebral infarction without residual deficits
CPT/HCPCS: 36415; 80048; 80061; 82172

== ENCOUNTER 2024-01-03 11:36 | Outpatient (CLI) | payer OTHER, SELFPAY ==
--- NOTE | ~2024-01-03 | US_ITS ---
EXAMINATION: US soft tissue UE RT DATE: 01/03/2024 12:05 INDICATION: Assess for foreign body at the plantar aspect of the right third metacarpophalangeal join t. TECHNIQUE: Multiple grayscale and Doppler ultrasound images of the region of concern palmar to the ri ght third carpophalangeal joint were obtained. COMPARISON: None FINDINGS: At the region of concern is phlegmonous change and minimal amount of anechoic fluid surrounding a 2.3 cm long shadowing linear foreign body which measures approximately 5 x 3 mm in orthogonal dimensions . The foreign body passes along the superficial margin of the flexor tendon. One end of the foreign b kenneth extends to within 1.5 mm of the skin surface with the other end of the foreign body 7 mm deep to the skin surface. IMPRESSION: 1. 2.3 x 0.5 x 0.3 cm linear foreign body in the subcutaneous tissues superficial to the flexor tendo n at the palmar aspect of the right third metacarpophalangeal joint. Reviewed, dictated and finalized at location A. IMPRESSION: 1. 2.3 x 0.5 x 0.3 cm linear foreign body in the subcutaneous tissues superfici al to the flexor tendon at the palmar aspect of the right third metacarpophalan geal joint.
== END 2024-01-03 11:37 | disposition home or self-care (01) ==
LOC: ANHIMG 11:38
PROVIDERS: PCP Internal Medicine; Visit Provider Plastic Surgery
DX: M79.89 Other specified soft tissue disorders (principal); S60.851A Superficial foreign body of right wrist, initial encounter; X58.XXXA Exposure to other specified factors, initial encounter
CPT/HCPCS: 76882

== ENCOUNTER 2025-04-09 16:31 | Outpatient (CLI) | payer OTHER, SELFPAY ==
[2025-04-09 16:45] LABS: Basophils Absolute Auto 0.1 K/mm3 (0.0-0.1); Basophils Percent Auto 0.9 % (0.2-1.2); Eosinophils Absolute Auto 0.3 K/mm3 (0-0.3); Eosinophils Percent Auto 5.1 % (0-4.4); Hematocrit 43.7 % (42.0-52.0); Hemoglobin 14.8 g/dL (14.0-18.0); Immature Granulocyte Absolute 0.01 K/mm3 (0.00-0.031); Immature Granulocyte Percent A 0.1 % (0-0.5); Lymphocytes Absolute Auto 2.46 K/mm3 (0.9-3.2); Lymphocytes Percent Auto 36.9 % (18.3-44.2); Mean Corpuscular HGB Conc 33.9 g/dl (32-36); Mean Corpuscular Volume 88.5 fl (80-100); Mean Platelet Volume 9.9 fl (7.4-10.4); Monocytes Absolute Auto 0.6 K/mm3 (0.1-0.6); Monocytes Percent Auto 8.4 % (2.6-8.5); Neutrophils Absolute Auto 3.2 K/mm3 (1.3-6.7); Neutrophils Percent Auto 48.6 % (45.5-73.1); Platelet Count Result 208 k/mm3 (150-375); Red Blood Count 4.94 M/mm3 (4.6-6.20); White Blood Count 6.7 K/mm3 (4.5-10.0)
[2025-04-09 16:57] LABS: Alanine Aminotransferase 21 U/L (6-50); Albumin Level 4.2 g/dL (3.5-5.1); Alkaline Phosphatase 57 U/L (38-126); Anion Gap 9 mmol/L (4-12); Aspartate Amino Transferase 26 U/L (17-59); Bilirubin,Total 0.5 mg/dL (0.2-1.3); Blood Urea Nitrogen 16 mg/dL (9-20); Carbon Dioxide 23 mmol/L (22-30); Chloride 108 mmol/L (98-107); Cholesterol 189 mg/dL (0-200); Estimated Glomerular Filt Rate > 60; Glucose 110 mg/dL (65-110); HDL Direct 36 mg/dL; Sodium 140 mmol/L (137-145); Total Protein 7.4 g/dL (6.3-8.2); Triglycerides 105 mg/dL (<150)
[2025-04-09 17:08] LABS: LDL Cholesterol Direct 113 mg/dL
[2025-04-09 17:28] LABS: Prostate Specific Antigen 1.2 ng/mL (< OR = 4.0)
== END 2025-04-09 16:32 | disposition home or self-care (01) ==
LOC: ANHLAB 16:34
PROVIDERS: PCP Internal Medicine; Visit Provider Clinical Nurse Specialist
DX: E78.2 Mixed hyperlipidemia (principal); I48.0 Paroxysmal atrial fibrillation; I10 Essential (primary) hypertension; R73.01 Impaired fasting glucose; Z12.5 Encounter for screening for malignant neoplasm of prostate; I25.119 Atherosclerotic heart disease of native coronary artery with unspecified angina pectoris
CPT/HCPCS: 36415; 80053; 80061; 83036; 84153; 85025; G0103

== ENCOUNTER 2025-10-08 08:33 | Outpatient (CLI) | payer OTHER, SELFPAY ==
--- OUTSIDE RECORDS SUMMARY | 2025-10-08 08:41 | XMS_ITS | Clinical Summary ---
Author Organization [facility] [place] [address] Address [address] [place] [address] Care Team Providers Care Central Control Room Operator Name Role Phone Zaid Fatima DO Primary Care Provider [phone] Allergies Active Allergy Reactions Criticality Noted Date Comments Ciprofloxacin Swelling Medium 07/11/2021 Ibuprofen Angioedema High 07/11/2017 Other Swelling High 07/05/2017 Tolmetin Swelling High 07/05/2017 Medications nitroglycerin (NITROSTAT) 0.4 mg SL tablet 07/27/2017 Active ASPIR-LOW 81 mg enteric coated tablet TAKE ONE TABLET DAILY 90 tablet 3 03/21/2019 Active carvedilol (COREG) 25 mg tablet TAKE ONE TABLET TWICE DAILY WITH MEALS. 180 tablet 3 03/21/2019 Active lisinopril (PRINIVIL,ZESTRI L) 10 mg tabletIndication s:Coronary artery disease involving bois forte heart without angina pectoris, unspecified vessel or lesion type TAKE ONE TABLET DAILY 90 tablet 2 05/25/2019 Active Eliquis 5 mg tablet Take 5 mg by mouth 2 (two) times a day 08/11/2021 Active atorvastatin (LIPITOR) 80 mg tablet Take 1 tablet (80 mg total) by mouth daily 07/06/2023 Active ticagrelor (BRILINTA) 60 mg tablet 1 tablet (60 mg total) 2 (two) times a day Active Active Problems Problem Noted Date Diagnosed Date H/O noncompliance with medic al treatment, presenting hazards to health 01/03/2018 History of non-ST elevation myocardial infarctio n (NSTEMI) 07/11/2017 Presence of stent in coronary artery 07/11/2017 Coronary artery disease invo lving bois forte heart without angina pectoris 07/11/2017 Hx of CABG 07/11/2017 Immunizations Immunization Administration Dates Next Due Tdap 08/01/2023 Surgical History Surgery Date Site/Laterality Comments ANTERIOR CRUCIATE LIGAMENT REPAIR Medical History Medical History Date Comments Hx Other Medical Diabetes Type I I Family History Medical History Relation Name Comments Heart attack Father 2 Myocardial Infa rction; Cause of : Myocardial Infarction Coronary artery disease Mother 2 Joel nary Artery Disease; Relation Name Status Comments Father 1 (Age 54) Father 2 Mother 1 Alive Mother 2 Social History Tobacco Use Types Packs/Day Years Used Date Smoking Tobacco: Every Day Cigarettes Smokeless Tobacco: Former Comments:Smoking History Pac ks/day: 0 Packs Alcohol Use Standard Drinks/Week Comments Yes 0 (1 standard drink = 0.6 oz pur e alcohol) Personal Safety Answer Date Recorded Have you ever been in or are you currently in a harmful physical or emotional relationship or is someone making you feel afraid or unsafe? Denies 12/10/2023 Sex and Gender Information Value Date Recorded Sex Assigned at Not on file Legal Sex Male 4:32 PM WATER TREATMENT TECHNICIAN Gender Identity Not on file Sexual Orientation Not on file Last Filed Vital Signs Vital Sign Reading Time Taken Comments Blood Pressure 139/95 12/10/2023 5:40 AM WATER TREATMENT TECHNICIAN Pulse 90 12/10/2023 5:35 AM WATER TREATMENT TECHNICIAN Temperature 36.7 C (98.1 F) 12/10/2023 1:45 AM WATER TREATMENT TECHNICIAN Respiratory Rate 20 12/10/2023 1:45 AM WATER TREATMENT TECHNICIAN Oxygen Saturation 99% 12/10/2023 5:35 AM WATER TREATMENT TECHNICIAN Inhaled Oxygen Concentration - - Weight 84.8 kg (187 lb) 12/10/2023 1:45 AM WATER TREATMENT TECHNICIAN Height 170.2 cm (5' 7) 12/10/2023 1:45 AM WATER TREATMENT TECHNICIAN Body Mass Index 29.29 12/10/2023 1:45 AM WATER TREATMENT TECHNICIAN Plan of Treatment Health Maintenance Due Date Last Done Comments Colon Cancer Screening-Colonoscopy 1975 Depression Screening 1975 Hepatitis C Screening 1975 Prostate Cancer Screening-PSA 1975 Hepatitis B Screening 01/17/1992 Regular Well Visit/Exam 18-64 01/17/1992 Pneumococcal vaccine <65 (1 of 2 - PCV) 1993 Zoster Vaccine (1 of 2) 01/17/2024 Influenza Vaccine (#1) 2025 07/06/2017 DTaP/Tdap/Td Vaccine (2 - Td or Tdap) 08/01/2033 Insurance AETNA SIG [id number] * Guarantor: [employer],[facility] Account Type Relation to Patient Date of Phone Billing Address [employer] [address] [place] [address] [employer] COMPENSATION GENERIC COMPENSATION Care Teams Central Control Room Operator Relationship Specialty Start Date End Date Zaid Fatima DO PCP - General 04/20/12
--- OUTSIDE RECORDS SUMMARY | 2025-10-08 08:41 | XMS_ITS | Clinical Summary ---
Author Organization [facility] [employer] Address [address] [place] [address] Care Team Providers Care Research Chief Engineer Name Role Phone Zaid Fatima DO Primary Care Provider [phone] Source Comments [facility],non-owned Affiliates and Associated Physician Practices is amultiple site organization consisting of ambulatory clinics and hospital sitesin [place], [place], [place] and [place]. This disclosure is being madepursuant to the Care Everywhere program and may not contain all information available regarding this patient. Last updated 18.[facility] Allergies Active Allergy Reactions Criticality Noted Date Comments Ciprofloxacin Swelling 07/11/2021 Nsaids Swelling 07/11/2021 Medications * Be aware that medications may not be up to date on this document. Alwaysverify current medications with the patient. aspirin (ASPIRIN) 81 MG chew tablet Take 81 mg by mouth once daily Active tamsulosin (FLOMAX) 0.4 MG capsule Take 0.4 mg by mouth once daily At the same time every day after a meal. Active omeprazole (PRILOSEC) 20 MG capsule Take 20 mg by mouth daily before breakfast Active apixaban (ELIQUIS) 5 MG tablet Take 1 (one) tablet by mouth 2 times daily 60 tablet 5 1 Active rosuvastatin (CRESTOR) 40 MG tablet Take 1 (one) tablet by mouth once daily 30 tablet 1 Active carvedilol (COREG) 25 MG tablet Take 1 (one) tablet by mouth 2 times daily with morning and evening meal 60 tablet 1 Active lisinopril (PRINIVIL; ZESTRIL) 10 MG tabletIndicatio ns:Restart if systolic blood pressure greater than 140 Take 1 (one) tablet by mouth once daily Reasons: Restart if systolic blood pressure greater than 140 Active nicotine (NICODERM CQ) 14 MG/24HR patch Apply 1 (one) patch to skin once daily as needed (Nicotine withdrawl) 14 patch Active Additional Information Patient not taking.Reported on 08/07/2021 Active Problems Problem Noted Date Diagnosed Date Cerebrovascular accident (CVA) 07/11/2021 Social History Tobacco Use Types Packs/Day Years Used Date Smoking Tobacco: Every Day Cigarettes Smokeless Tobacco: Never Tobacco Cessation:Ready to Q uit: No; Counseling Given: Yes Alcohol Use Standard Drinks/Week Comments Yes 5 (1 standard drink = 0.6 oz pur e alcohol) PHQ-2 Answer Date Recorded PHQ2 TOTAL SCORE 0 07/13/2021 Sex and Gender Information Value Date Recorded Sex Assigned at Not on file Legal Sex Male 4:59 AM [employer] Gender Identity Not on file Sexual Orientation Not on file Last Filed Vital Signs Vital Sign Reading Time Taken Comments Blood Pressure 110/80 08/07/2021 1:45 PM CDT Pulse 87 08/07/2021 1:45 PM CDT Temperature 36.5 C (97.7 F) 07/13/2021 12:30 PM CDT Respiratory Rate 16 08/07/2021 1:45 PM CDT Oxygen Saturation 98% 08/07/2021 1:45 PM CDT Inhaled Oxygen Concentration - - Weight 84.8 kg (187 lb) 08/07/2021 1:45 PM CDT Height 172.7 cm (5' 8) 08/07/2021 1:45 PM CDT Body Mass Index 28.43 08/07/2021 1:45 PM CDT Plan of Treatment Health Maintenance Due Date Last Done Comments COLOGUARD (AGES 45-75) - COLON CA SCREENING 1974 COLON MONITORING 1974 COLONOSCOPY - COLON CA SCREENING 1974 CT COLONOGRAPHY - COLON CA SCREENING 1974 Colorectal Cancer Screening 1974 FIT - COLON CA SCREENING 1974 FLEX SIG - COLON CA SCREENING 1974 HIV SCREENING 1989 HEPATITIS C SCREENING 01/12/1992 DTAP/TDAP/TD VACCINES (1 - Tdap) 1993 HEPATITIS B VACCINE (1 of 3 - 19+ 3-dose series) 1993 PNEUMOCOCCAL VACCINE 50+ (1 of 1 - PCV) 01/17/2024 ZOSTER VACCINE (1 of 2) 01/17/2024 SCREENING FOR DIABETES 07/13/2024 , 07/11/2021, 07/11/2021, Additional history exists DEPRESSION SCREENING 10/17/2024 COVID-19 VACCINE ( - 2024- season) 2025 INFLUENZA VACCINE (#1) 2025 HIB VACCINE Aged Out No longer eligi ble based on patient's age to complete this topic HPV VACCINE Aged Out No longer eligi ble based on patient's age to complete this topic MENINGOCOCCAL (Group B) VACCINE SHARED DECISION-MAKING Aged Out No longer eligible based on patient's age to complete this topic MENINGOCOCCAL GROUPS A/C/Y/W VACCINE Aged Out No longer eligible based on patient's age to complete this topic Procedures Procedure Name Priority Date/Time Associated Diagnosis Comments BASIC METABOLIC PANEL (CALCIUM TOTAL) AM Draw 07/13/2021 4:23 AM CDT from Last 3 Months or Most Recently Relevant to Health Maintenance Results * (ABNORMAL) BASIC METABOLIC PANEL (CALCIUM TOTAL) (07/13/2021 4:23 AM CDT) Glucose 102 70 - 105 mg/dL 07/13/2021 5:38 AM CDT [facility] Sodium 136 136 - 145 mmol/L 07/13/2021 5:38 AM CDT [facility] Potassium 4.3 3.5 - 5.1 mmol/L 07/13/2021 5:38 AM CDT [facility] Chloride 105 98 - 107 mmol/L 07/13/2021 5:38 AM CDT [facility] CO2 21(L) 23 - 31 mmol/L 07/13/2021 5:38 AM CDT [facility] Calcium 9.1 8.4 - 10.4 mg/dL 07/13/2021 5:38 AM CDT [facility] Anion Gap 10 8 - 18 mmol/L 07/13/2021 5:38 AM CDT [facility] BUN 15 8.9 - 20.6 mg/dL 07/13/2021 5:38 AM CDT [facility] Creatinine 0.94 0.72 - 1.25 mg/dL 07/13/2021 5:38 AM CDT [facility] eGFR by MDRD >60 >60 mL/min/1.7 3m2 07/13/2021 5:38 AM CDT [facility] eGFR by MDRD >60 >60 mL/min/1.7 3m2 07/13/2021 5:38 AM CDT [facility] Blood BLOOD SPECIMEN / Unknown Venipuncture / Unknown 07/13/2021 4:23 AM CDT 07/13/2021 5:05 AM CDT Sandi Merino [employer] [facility] - CHEMISTRY ORDERAB LES Final Result [facility] [id number] [place] [id number] from Last 3 Months or Most Recently Relevant to Health Maintenance Insurance [employer] Advance Directives * Full Code (Latest Code Status on File) Date Activated Date Inactivated Comments 07/11/2021 4:35 AM 07/13/2021 4:53 PM Care Teams Research Chief Engineer Relationship Specialty Start Date End Date Zaid Fatima DO PCP - General Internal Medicine 08/07/21
--- OUTSIDE RECORDS SUMMARY | 2025-10-08 08:41 | XMS_ITS | Clinical Summary ---
Author Organization [facility] Address [address] [place] [address] Phone Care Team Providers Care Char Filter Operator Name Role Phone Zaid Fatima DO Primary Care Provider Allergies Active Allergy Reactions Criticality Noted Date Comments Nsaids (Non-Steroidal Anti-I nflammatory Drug) Unknown 09/30/2025 Medications apixaban (ELIQUIS) 5 mg tablet Take 1 Tablet (5 mg) by mouth 2 times daily. 60 Tablet 2 10/01/2025 4:14 PM SQUILGEER 10/01/2025 12/31/19 26 Active aspirin (ECOTRIN EC) 81 mg Tablet, Delayed Release (E.C.) Take 1 Tablet (81 mg) by mouth daily. 30 Tablet 2 10/01/2025 4:14 PM SQUILGEER 10/01/2025 12/31/19 26 Active atorvastatin (LIPITOR) 80 mg tablet Take 1 Tablet (80 mg) by mouth daily at bedtime. 30 Tablet 2 10/01/2025 4:14 PM SQUILGEER 10/01/2025 12/31/19 26 Active carvedilol (COREG) 25 mg tablet Take 1 Tablet (25 mg) by mouth every 12 hours. 60 Tablet 2 10/01/2025 4:14 PM SQUILGEER 10/01/2025 12/31/19 26 Active lisinopriL (PRINIVIL) 10 mg tablet Take 1 Tablet (10 mg) by mouth daily. 90 Tablet 10/01/2025 4:14 PM SQUILGEER 10/01/2025 12/31/19 26 Active spironolactone (ALDACTONE) 25 mg tablet Starting 10/02/25, Take One-Half Tablet (12.5 mg) by mouth daily. 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 09/30/2025 Class 1 obesity due to exces s calories with serious comorbidity and body mass index (BMI) of 30.0 to 30.9 in adult 09/30/2025 Non compliance w medication regimen 09/30/2025 Encounters Date Type Department Care Team Description 10/01/2025 External Device Data [facility] ABSTRACTION Provider, Abstract 10/01/2025 External Device Data [facility] ABSTRACTION Provider, Abstract 10/01/2025 External Device Data [facility] ABSTRACTION Provider, Abstract 09/30/2025 1:09 AM SQUILGEER - 10/01/2025 4:59 PM SQUILGEER Hospital Encounter [facility] [address] [place] [address] Sameer Scherer MD Vaynman, Alexander Richard, DO Husain, Ali, MD Idemudia, Osarenren, MD Transient ischemic attack Discharge Disposition: Home or Self Care 09/30/2025 Travel from Last 3 Months Social History Tobacco Use Types Packs/Day Years Used Date Smoking Tobacco: Unknown Tobacco Cessation:Counseling Given: Not Answered Food Insecurity Answer Date Recorded Do you find you are eating l ess than you should because you can t pay for food? No 09/30/2025 Transportation Needs Answer Date Record ed Have you gone without health care because you didn t have a way to get there? Or worry about transportation for future doctor visits, poultry picker medication, etc.? No 2024 Housing Stability Answer Date Recorded Do you worry you won t have a steady place to sleep or struggle to pay rent or mortgage? No 09/30/2025 Utility Needs Answer Date Recorded Do you have difficulty payin g for utility costs (electric, water or gas bills)? No 09/30/2025 Medication Needs Answer Date Recorded Have you skipped taking medi cation due to cost or worry you can t afford new medications? No 09/30/2025 Feeling Safe Answer Date Recorded Are you in a relationship wi th someone who hurts you emotionally and/or physically? No 09/30/2025 Food Insecurity Answer Date Recorded Patient needs follow up regardin 10/02/2025 Transportation Needs Answer Date Record ed Patient needs follow up regardin 10/02/2025 Utility Needs Answer Date Recorded Patient needs follow up regardin 10/02/2025 Sex and Gender Information Value Date Recorded Sex Assigned at Not on file Legal Sex Male 5:48 PM CDT Gender Identity Not on file Sexual Orientation Not on file Last Filed Vital Signs Vital Sign Reading Time Taken Comments Blood Pressure 137/90 10/01/2025 3:18 PM SQUILGEER Pulse 91 10/01/2025 3:18 PM SQUILGEER Temperature 36.7 C (98 F) 10/01/2025 3:18 PM SQUILGEER Respiratory Rate 24 10/01/2025 3:18 PM SQUILGEER Oxygen Saturation 99% 10/01/2025 3:18 PM SQUILGEER Inhaled Oxygen Concentration - - Weight 84.8 kg (187 lb) 09/30/2025 4:00 AM SQUILGEER Height 167.6 cm (5' 6) 09/30/2025 4:00 AM SQUILGEER Body Mass Index 30.18 09/30/2025 4:00 AM SQUILGEER Plan of Treatment Health Maintenance Due Date Last Done Comments DTAP/TDAP/TD VACCINES (1 - Tdap) 1993 HEPATITIS B VACCINES (1 of 3 - 19+ 3-dose series) 11/1992 COLORECTAL SCREENING 2019 Colorectal Cancer Screening 2019 FIT-DNA Q 3 years 2019 FIT/FOBT Q 1 year 2019 Flex Sig/CT Colonography Q 5 years 2019 ZOSTER VACCINE (1 of 2) 01/17/2024 INFLUENZA VACCINE (#1) 2025 Pre-Diabetes and Diabetes Screening 09/30/202809/30 Procedures Procedure Name Priority Date/Time Associated Diagnosis Comments ECHOCARDIOGRAM W/ CONTRAST AGENT Routine 10/01/2025 8:59 AM SQUILGEER CBC WITH DIFFERENTIAL Routine 10/01/2025 4:11 AM SQUILGEER BASIC METABOLIC PANEL Routine 10/01/2025 4:11 AM SQUILGEER MRI BRAIN WO CONTRAST Stat 09/30/2025 1:14 PM SQUILGEER VERIFICATION BLOOD GROUP Stat 09/30/2025 10:47 AM SQUILGEER Encounter for blood typing TROPONIN 6 HR, 5TH GEN Timed Study 5 7:18 AM SQUILGEER TROPONIN 2 HR, 5TH GEN Timed Study 5 5:08 AM SQUILGEER THERMITE WELDER EVALUATE AND TREAT Routine 3:45 AM SQUILGEER PT EVAL AND TREAT Routine 09/30/2025 3:4 5 AM SQUILGEER OT EVAL AND TREAT Routine 09/30/2025 3:4 5 AM SQUILGEER EKG 12-LEAD Stat 09/30/2025 1:[address] CEREBRAL PERFUSION STDY W CONT Stat 09/30/2025 1:37 AM SQUILGEER CTA HEAD AND NECK W AND/OR WO CONTRAST Stat 09/30/2025 1:[address] HEAD WO CONTRAST STROKE PROTOCOL Stat 09/30/2025 1:23 AM SQUILGEER LIPID PANEL Stat 09/30/2025 1:12 AM SQUILGEER TSH REFLEXIVE Stat 09/30/2025 1:12 AM SQUILGEER COMPREHENSIVE METABOLIC PANEL Stat 09/30/2025 1:12 AM SQUILGEER TROPONIN BASELINE, 5TH GEN Stat 09/30/2025 1:12 AM SQUILGEER TYPE AND SCREEN Stat 09/30/2025 1:11 AM SQUILGEER POC GLUCOSE Stat 09/30/2025 1:11 AM SQUILGEER HEMOGLOBIN A1C Stat 09/30/2025 1:11 AM SQUILGEER PROTIME-INR Stat 09/30/2025 1:11 AM SQUILGEER CBC WITH DIFFERENTIAL Stat 09/30/2025 1:11 AM SQUILGEER CRITICAL CARE Routine 09/30/2025 1:09 AM SQUILGEER from Last 3 Months Results * ECHOCARDIOGRAM W/ CONTRAST AGENT (10/01/2025 8:59 AM SQUILGEER) EJECTION FRACTION 25 INTERFACE SYSTEM 10/01/2025 8:31 AM SQUILGEER [facility] INTERFACE SYSTEM - 10/01/2025 9:16 AM SQUILGEER [facility] Heart [facility] Vascular Testing Transthoracic Echocardiogram Patient: Steve Bernard Study ID: [id number] Gender: M : 1975 Age: 50 Race: [facility] Height 167.6cm Study Date: 10/01/2025 Weight: 84.8kg Access. #: [id number] BP: 139 / 78 *Referring Physician:* Trung Triplett *Ordering Physician:* Trung Triplett *Labor Relations Specialist:* Lacy Huntley [facility] gum sprayer: Nurse: Indications: Atrial fibrillation. Cerebrovascular accident. History: PMH: Atrial Fibrillation. HLD. Transient ischemic attack. Risk factors: Hypertension. Labs, prior tests, procedures, and surgery: Coronary artery bypass grafting. STUDY CONCLUSIONS: SUMMARY: - Left ventricle: The cavity size was mildly dilated. Wall thickness was normal. Global systolic function is moderately to severely reduced. The estimated ejection fraction is 25-30%. For Epic reporting: the left ventricular ejection fraction is 25% . There is severe diffuse hypokinesisdistinct regional wall motion abnormalities. Apical akinesis. - Mitral valve: Mild regurgitation. - Right ventricle: The cavity size is normal. Systolic function is normal. - Atrial septum: Agitated saline contrast study at baseline or with provocation, shows no wwgyw-bc-upau atrial level shunt. - Tricuspid valve: Mild regurgitation. - Pulmonary arteries: The peak systolic pressure is 17mm Hg. Cardiac Anatomy: LEFT VENTRICLE: The cavity size was mildly dilated. Wall thickness was normal. Global systolic function is moderately to severely reduced. The estimated ejection fraction is 25-30%. For Epic reporting: the left ventricular ejection fraction is 25% . There is severe diffuse hypokinesisdistinct regional wall motion abnormalities. Apical akinesis. AORTIC VALVE: Structurally normal valve. Trileaflet. No significant regurgitation. The mean systolic gradient is 2mm Hg. The peak systolic gradient is 4mm Hg. The LVOT to aortic valve VTI ratio is 0.83. The valve area is 2.6cm^2. The ratio of LVOT to aortic valve peak velocity is 0.8. AORTA: Aortic root: The root is normal-sized. MITRAL VALVE: Structurally normal valve. Mild regurgitation. The mean diastolic gradient is 1mm Hg. The peak diastolic gradient is 2mm Hg. LEFT ATRIUM: The atrium is at the upper limits of normal in size. ATRIAL SEPTUM: Agitated saline contrast study at baseline or with provocation, shows no tcwgr-qt-ohaf atrial level shunt. RIGHT VENTRICLE: The cavity size is normal. Systolic function is normal. PULMONIC VALVE: Structurally normal valve. No significant regurgitation. TRICUSPID VALVE: Structurally normal valve. Mild regurgitation. RIGHT ATRIUM: The atrium was normal in size. SYSTEMIC VEINS: Inferior vena cava: The IVC is normal-sized. PERICARDIUM: There is no pericardial effusion. Measurements Left ventricle Value Ref IVS, ED, LAX (N) 1.0 cm 0.6 - 1.0 FINN, LAX (N) 4.6 cm 4.2 - 5.8 FINN/bsa, LAX (N) 2.4 cm/m^2 2.2 - 3.0 IVS, ED (N) 1.0 cm 0.6 - 1.0 PW, ED (N) 1.0 cm 0.6 - 1.0 EDV, 2-p (H) 199 ml 62 - 150 ESV, 2-p (H) 129 ml 21 - 61 EF, 2-p (L) 35 % 52 - 72 SV, 2-p 70 ml --------- SV/bsa, 2-p 36.1 ml/m^2 --------- E', med pierce, TDI (L) 5.7 cm/sec >=7.0 E/e', med pierce, TDI 15 --------- LVOT Value Ref Diam, S 2.0 cm --------- Area 3.1 cm^2 --------- Peak jade, S 0.83 m/sec --------- VTI, S 15.1 cm --------- Right ventricle Value Ref FINN minor ax, A4C base (N) 3.5 cm 2.5 - 4.1 FINN minor ax, A4C mid (N) 2.5 cm 1.9 - 3.5 FINN major ax, A4C (H) 9.1 cm 5.9 - 8.3 TAPSE, MM (L) 1.5 cm >=1.7 Pressure, S 17 mm Hg --------- S' lateral (L) 5.6 cm/sec >=9.5 Left atrium Value Ref AP dim, ES (H) 4.1 cm 3.0 - 4.0 AP dim index, ES (N) 2.1 cm/m^2 1.5 - 2.3 SI dim, A4C 5.1 cm --------- Area ES, A4C (N) 19 cm^2 <=20 Area/bsa ES, A4C 9.9 cm^2/m^2 --------- SI dim, A2C 5.7 cm --------- SI dim, shorter 5.1 cm --------- Vol, ES, 1-p A2C (H) 59 ml 18 - 58 Vol/bsa, ES, 1-p A2C (N) 30 ml/m^2 11 - 43 Vol, ES, 2-p 61 ml --------- Vol/bsa, ES, 2-p (N) 32 ml/m^2 16 - 34 LA/Ao root ratio 1.41 --------- Right atrium Value Ref SI dim, ES, A4C (N) 4.4 cm 3.4 - 5.3 SI dim/bsa, ES, A4C (N) 2.2 cm/m^2 1.8 - 3.0 Area, ES, A4C (N) 12 cm^2 10 - 18 Vol, ES, 1-p A4C 27 ml --------- Vol/bsa, ES, 1-p A4C (N) 14 ml/m^2 11 - 39 Aortic valve Value Ref Peak v, S 1 m/sec --------- Mean v, S 0.72 m/sec --------- VTI, S 18.3 cm --------- Mean grad, S 2 mm Hg --------- Peak grad, S 4 mm Hg --------- LVOT/AV, VTI ratio 0.83 --------- JONATHON, VTI 2.6 cm^2 --------- JONATHON/bsa, VTI 1.34 cm^2/m^2 --------- LVOT/AV, Vpeak ratio 0.8 --------- JONATHON, Vmax 2.5 cm^2 --------- JONATHON/bsa, Vmax 1.3 cm^2/m^2 --------- Mitral valve Value Ref Peak E 0.82 m/sec --------- Peak A 0.73 m/sec --------- Mean grad, D 1 mm Hg --------- Peak grad, D 2 mm Hg --------- Peak E/A ratio 1.1 --------- Pulmonic valve Value Ref Peak v, S 1.1 m/sec --------- Peak grad, S 5 mm Hg --------- Tricuspid valve Value Ref Peak E 0.2 m/sec --------- TR peak v (N) 1.7 m/sec <=2.8 Peak RV-RA grad, S 12 mm Hg --------- Aortic root Value Ref Root diam, 2.9 cm --------- Ascending aorta Value Ref AAo AP diam, S 2.9 cm --------- AAo AP diam/bsa, S 1.5 cm/m^2 --------- Pulmonary artery Value Ref Pressure, S 17 mm Hg --------- Systemic veins Value Ref Estimated RA pressure 5 mm Hg --------- Legend: (L) and (H) esme values outside specified reference range. (N) cat values inside specified reference range. Procedure data: MCHOD No prior study was available for comparison. Study status: Routine. Procedure information: A transthoracic echocardiogram was performed. Image quality was technically difficult, The study was technically limited due to poor acoustic window availability. Scanning was performed from the parasternal, apical, and subcostal acoustic windows. Intravenous contrast (Definity) was administered to enhance endocardial border detection that was not seen in two consecutive segments due to suboptimal baseline images and opacify the LV. A bubble study was performed with agitated saline. Transthoracic echocardiogram. Complete 2D, complete spectral Doppler, and color Doppler. Images were not appropriate for strain imaging. Birthdate: Patient birthdate: 1975. Age: Patient is 50year(s) old. Sex: gender: male. Height: 167.6cm. 66in. Weight: 84.8kg. 187lb. Body mass index: 30.2kg/m^2. Body surface area: 1.94m^2. Heart rate: 99bpm. Blood pressure: 139/78 Patient status: Inpatient. Study date: Study date: 10/01/2025. Study time: 08:31 AM. Location: Bedside. Prepared and Electronically Authenticated Mayito Glover M.D. [id number]:26 Procedure Note Mayito Glover MD - 10/01/2025 [facility] Heart and Vascular Testing Transthoracic Echocardiogram Patient: Steve Bernard Study ID: [id number] Gender: M : 1975 Age: 50 Race: BERE Height 167.6cm Study Date: 10/01/2025 Weight: 84.8kg Access. #: [id number] BP: 139 / 78 *Referring Physician:Trung Jean Baptiste *Ordering Physician:Trung Jean Baptiste *Labor Relations Specialist:Lacy Martines [facility] gum sprayer: Nurse: Indications: Atrial fibrillation. Cerebrovascular accident. History: PMH: Atrial Fibrillation. HLD. Transient ischemic attack. Riskfactors: Hypertension. Labs, prior tests, procedures, and surgery: Coronary artery bypass grafting. STUDY CONCLUSIONS: SUMMARY: - Left ventricle: The cavity size was mildly dilated. Wall thickness was normal. Global systolic function is moderately to severely reduced.The estimated ejection fraction is 25-30%. For Epic reporting: the left ventricular ejection fraction is 25% . There is severe diffuse hypokinesisdistinct regional wall motion abnormalities. Apicalakinesis. - Mitral valve: Mild regurgitation. - Right ventricle: The cavity size is normal. Systolic function isnormal. - Atrial septum: Agitated saline contrast study at baseline or with provocation, shows no knwwk-zg-vobb atrial level shunt. - Tricuspid valve: Mild regurgitation. - Pulmonary arteries: The peak systolic pressure is 17mm Hg. Cardiac Anatomy: LEFT VENTRICLE: The cavity size was mildly dilated. Wall thickness was normal. Global systolic function is moderately to severely reduced. The estimated ejection fraction is 25-30%. For Epic reporting: the left ventricular ejection fraction is 25% . There is severe diffuse hypokinesisdistinct regional wall motion abnormalities. Apical akinesis. AORTIC VALVE: Structurally normal valve. Trileaflet. No significant regurgitation. The mean systolic gradient is 2mm Hg. The peak systolic gradient is 4mm Hg. The LVOT to aortic valve VTI ratio is 0.83. The valvearea is 2.6cm^2. The ratio of LVOT to aortic valve peak velocity is 0.8. AORTA: Aortic root: The root is normal-sized. MITRAL VALVE: Structurally normal valve. Mild regurgitation. Themean diastolic gradient is 1mm Hg. The peak diastolic gradient is 2mm Hg. LEFT ATRIUM: The atrium is at the upper limits of normal in size. ATRIAL SEPTUM: Agitated saline contrast study at baseline or with provocation, shows no laefr-fl-gdbf atrial level shunt. RIGHT VENTRICLE: The cavity size is normal. Systolic function isnormal. PULMONIC VALVE: Structurally normal valve. No significantregurgitation. TRICUSPID VALVE: Structurally normal valve. Mild regurgitation. RIGHT ATRIUM: The atrium was normal in size. SYSTEMIC VEINS: Inferior vena cava: The IVC is normal-sized. PERICARDIUM: There is no pericardial effusion. Measurements Left ventricle Value Ref IVS, ED, LAX (N) 1.0 cm 0.6 - 1.0 FINN, LAX (N) 4.6 cm 4.2 - 5.8 FINN/bsa, LAX (N) 2.4 cm/m^2 2.2 - 3.0 IVS, ED (N) 1.0 cm 0.6 - 1.0 PW, ED (N) 1.0 cm 0.6 - 1.0 EDV, 2-p (H) 199 ml 62 - 150 ESV, 2-p (H) 129 ml 21 - 61 EF, 2-p (L) 35 % 52 - 72 SV, 2-p 70 ml --------- SV/bsa, 2-p 36.1 ml/m^2 --------- E', med pierce, TDI (L) 5.7 cm/sec >=7.0 E/e', med pierce, TDI 15 --------- LVOT Value Ref Diam, S 2.0 cm --------- Area 3.1 cm^2 --------- Peak jade, S 0.83 m/sec --------- VTI, S 15.1 cm --------- Right ventricle Value Ref FINN minor ax, A4C base (N) 3.5 cm 2.5 - 4.1 FINN minor ax, A4C mid (N) 2.5 cm 1.9 - 3.5 FINN major ax, A4C (H) 9.1 cm 5.9 - 8.3 TAPSE, MM (L) 1.5 cm >=1.7 Pressure, S 17 mm Hg --------- S' lateral (L) 5.6 cm/sec >=9.5 Left atrium Value Ref AP dim, ES (H) 4.1 cm 3.0 - 4.0 AP dim index, ES (N) 2.1 cm/m^2 1.5 - 2.3 SI dim, A4C 5.1 cm --------- Area ES, A4C (N) 19 cm^2 <=20 Area/bsa ES, A4C 9.9 cm^2/m^2 --------- SI dim, A2C 5.7 cm --------- SI dim, shorter 5.1 cm --------- Vol, ES, 1-p A2C (H) 59 ml 18 - 58 Vol/bsa, ES, 1-p A2C (N) 30 ml/m^2 11 - 43 Vol, ES, 2-p 61 ml --------- Vol/bsa, ES, 2-p (N) 32 ml/m^2 16 - 34 LA/Ao root ratio 1.41 --------- Right atrium Value Ref SI dim, ES, A4C (N) 4.4 cm 3.4 - 5.3 SI dim/bsa, ES, A4C (N) 2.2 cm/m^2 1.8 - 3.0 Area, ES, A4C (N) 12 cm^2 10 - 18 Vol, ES, 1-p A4C 27 ml --------- Vol/bsa, ES, 1-p A4C (N) 14 ml/m^2 11 - 39 Aortic valve Value Ref Peak v, S 1 m/sec --------- Mean v, S 0.72 m/sec --------- VTI, S 18.3 cm --------- Mean grad, S 2 mm Hg --------- Peak grad, S 4 mm Hg --------- LVOT/AV, VTI ratio 0.83 --------- JONATHON, VTI 2.6 cm^2 --------- JONATHON/bsa, VTI 1.34 cm^2/m^2 --------- LVOT/AV, Vpeak ratio 0.8 --------- JONATHON, Vmax 2.5 cm^2 --------- JONATHON/bsa, Vmax 1.3 cm^2/m^2 --------- Mitral valve Value Ref Peak E 0.82 m/sec --------- Peak A 0.73 m/sec --------- Mean grad, D 1 mm Hg --------- Peak grad, D 2 mm Hg --------- Peak E/A ratio 1.1 --------- Pulmonic valve Value Ref Peak v, S 1.1 m/sec --------- Peak grad, S 5 mm Hg --------- Tricuspid valve Value Ref Peak E 0.2 m/sec --------- TR peak v (N) 1.7 m/sec <=2.8 Peak RV-RA grad, S 12 mm Hg --------- Aortic root Value Ref Root diam, 2.9 cm --------- Ascending aorta Value Ref AAo AP diam, S 2.9 cm --------- AAo AP diam/bsa, S 1.5 cm/m^2 --------- Pulmonary artery Value Ref Pressure, S 17 mm Hg --------- Systemic veins Value Ref Estimated RA pressure 5 mm Hg --------- Legend: (L) and (H) esme values outside specified reference range. (N) cat values inside specified reference range. Procedure data: MCHOD No prior study was available for comparison. Study status:Routine. Procedure information: A transthoracic echocardiogram was performed.Image quality was technically difficult, The study was technically limited dueto poor acoustic window availability. Scanning was performed from the parasternal, apical, and subcostal acoustic windows. Intravenouscontrast (Definity) was administered to enhance endocardial border detection thatwas not seen in two consecutive segments due to suboptimal baseline imagesand opacify the LV. A bubble study was performed with agitated saline. Transthoracic echocardiogram. Complete 2D, complete spectral Doppler,and color Doppler. Images were not appropriate for strain imaging.Birthdate: Patient birthdate: 1975. Age: Patient is 50year(s) old. Sex: gender: male. Height: 167.6cm. 66in. Weight: 84.8kg. 187lb. Bodymass index: 30.2kg/m^2. Body surface area: 1.94m^2. Heart rate:99bpm. Blood pressure: 139/78 Patient status: Inpatient. Study date:Study date: 10/01/2025. Study time: 08:31 AM. Location: Bedside. Preparedand Electronically Authenticated Mayito Glover M.D. [id number] Trung Triplett TOLL COLLECTOR US ORDERABLES Final Resu lt INTERFACE SYSTEM Refer to clinic/hospital department * CBC WITH DIFFERENTIAL (10/01/2025 4:11 AM SQUILGEER) Only the most recent of2 resultswithin the time period is included. WBC 5.7 4.0 - 9.8 K/uL 10/01/2025 5:19 AM [facility] RBC 4.91 4.50 - 5.40 M/uL 10/01/2025 5:19 AM [facility] HEMOGLOBIN 15.0 13.6 - 16.5 g/dL 10/01/2025 5:19 AM [facility] HEMATOCRIT 43.4 40.0 - 48.0 % 10/01/2025 5:19 AM [facility] [facility] MCV 88.4 82.0 - 99.0 fL 10/01/2025 5:19 AM [facility] [employer] [facility] MCH 30.5 27.2 - 32.6 pg 10/01/2025 5:19 AM SQUILGEER [facility] MCHC 34.6 31.5 - 35.5 g/dL 10/01/2025 5:19 AM SQUILGEER [facility] RDW 13.0 11.5 - 14.5 % 10/01/2025 5:19 AM SQUILGEER [facility] RDW-STDEV 42.2 37.1 - 48.7 fL 10/01/2025 5:19 AM [facility] PLATELETS 212 140 - 350 K/uL 10/01/2025 5:19 AM [facility] MPV 10.6 9.3 - 12.4 fL 10/01/2025 5:19 AM SQUILGEER [facility] NEUTROPHILS 65 % 10/01/2025 5:19 AM [facility] LYMPHOCYTES 20 % 10/01/2025 5:19 AM [facility]GEER [facility] MONOCYTES 9 % 10/01/2025 5:19 AM [facility]ILGEER [facility] EOSINOPHILS 5 % 10/01/2025 5:19 AM [facility]GEER [facility] BASOPHILS 1 % 10/01/2025 5:19 AM SQUILGEER [facility] IMMATURE GRANULOCYTES 0 % 10/01/2025 5:19 AM SQUILGEER [facility] NEUTROPHIL ABSOLUTE 3.75 1.90 - 7.00 K/uL 10/01/2025 5:19 AM SQUILGEER [facility] LYMPHOCYTE ABSOLUTE 1.12 0.70 - 4.50 K/uL 10/01/2025 5:19 AM SQUILGEER [facility] MONOCYTE ABSOLUTE 0.54 0.10 - 1.30 K/uL 10/01/2025 5:19 AM SQUILGEER [facility] EOSINOPHIL ABSOLUTE 0.29 0.00 - 0.70 K/uL 10/01/2025 5:19 AM SQUILGEER [facility] BASOPHILS ABSOLUTE 0.03 0.00 - 0.20 K/uL 10/01/2025 5:19 AM SQUILGEER [facility] IMMATURE GRANULOCYTES ABSOLUTE 0.01 0.00 - 0.03 K/uL 10/01/2025 5:19 AM [facility] Blood Venipuncture / Unknown 10/01/2025 4:11 AM SQUILGEER 10/01/2025 5:15 AM SQUILGEER Shree Brianashish HEMATOLOGY ORDERABL ES Final Result [facility] CLIA# [id number] [place] [address] * (ABNORMAL) BASIC METABOLIC PANEL (10/01/2025 4:11 AM SQUILGEER) SODIUM 137 136 - 145 mmol/L 10/01/2025 5:42 AM [facility] POTASSIUM 4.4 3.4 - 5.1 mmol/L 10/01/2025 5:42 AM [facility] CHLORIDE 103 98 - 107 mmol/L 10/01/2025 5:42 AM [facility] CO2 25 22 - 29 mmol/L 10/01/2025 5:42 AM [facility] CALCIUM 9.2 8.6 - 10.4 mg/dL 10/01/2025 5:42 AM [facility] BUN 15 6 - 20 mg/dL 10/01/2025 5:42 AM [facility] CREATININE 0.97 0.67 - 1.17 mg/dL 10/01/2025 5:42 AM [facility] GLUCOSE 141(H) 74 - 99 mg/dL 10/01/2025 5:42 AM [facility] GFR >60 >=60 mL/min/1.7 3 sq meter 10/01/2025 5:42 AM [facility] Comment:eGFR calculated with 2020 CKD-EPI equation. Vegetarian diet, extremely high or low muscle mass, and may affect results. Cystatin C with Glomerular Filtration Rate is a suitable alternative for these patients. ANION GAP 9 8 - 16 mmol/L 10/01/2025 5:42 AM [facility] Blood Venipuncture / Unknown 10/01/2025 4:11 AM SQUILGEER 10/01/2025 5:11 AM SQUILGEER Shree Naranjo DO CHEMISTRY ORDERABLE S Final Result [facility] CLIA# [id number] [place] [address] * MRI BRAIN WO CONTRAST (09/30/2025 1:14 PM SQUILGEER) Anatomical Region Laterality Modality Head Magnetic Resonan ce 09/30/2025 1:15 PM SQUILGEER Impressions 09/30/2025 1:28 PM SQUILGEER IMPRESSION: 1. Multiple small acute right frontoparietal cortical infarcts in the middle cerebral artery distribution. 2. 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 DICTATION LOCATION: Location 7 - [facility] Narrative 09/30/2025 1:28 PM SQUILGEER EXAMINATION: MRI BRAIN WO CONTRAST DATE: 09/30/2025 1:14 PM HISTORY: Transient ischemic attack (TIA), Neuro deficit, acute, stroke suspected. Dizziness; Stroke-like symptoms; Weakness of both hands FINDINGS: Multiplanar magnetic resonance imaging the brain is performed without contrast revealing an old left occipital infarct. Pituitary size is normal. Minimal right lateral parietal cortical encephalomalacia is present. Mild bilateral periventricular white matter gliosis is present. There is no intracranial hemorrhage, mass effect, or fluid collection. Several small foci of restricted diffusion are scattered in the right superior frontal lobe and posterior right parietal lobe. Krishan Lorenzo MD MR ORDERABLES Edited Resul t - Final * VERIFICATION BLOOD GROUP (09/30/2025 10:47 AM SQUILGEER) ABO GROUP B 09/30/2025 11:52 AM SQUILGEER [facility] RH (D) TYPE Positive 09/30/2025 11:52 AM SQUILGEER [facility] Blood Venipuncture / Unknown 09/30/2025 10:47 AM SQUILGEER 09/30/2025 10:58 AM SQUILGEER us Sameer Scherer MD BLOOD BANK ORDERABLES Final Resu lt [id number] [place] [address] * TROPONIN 6 HR, 5TH GEN (09/30/2025 7:18 AM SQUILGEER) TROPONIN T, 6 HR 5TH GEN 11 <=15 ng/L 09/30/2025 9:22 AM SQUILGEER [facility] DELTA 6HR TROPONIN T -2 See Interp. 09/30/2025 9:22 AM SQUILGEER [facility] Blood Venipuncture / Unknown 09/30/2025 7:18 AM SQUILGEER 09/30/2025 8:48 AM SQUILGEER [facility] - 09/30/2025 9:22 AM SQUILGEER Troponin Detectable but normal range. Delta indeterminate. Sameer Scherer MD CHEMISTRY ORDERABLES Final Resul t Performing Organization Address City/[facility]/ZIP Co de Phone Number [facility] [id number] [place] [address] * TROPONIN 2 HR, 5TH GEN (09/30/2025 5:08 AM SQUILGEER) TROPONIN T, 2 HR 5TH GEN 11 <=15 ng/L 09/30/2025 5:59 AM SQUILGEER [facility] DELTA 2HR TROPONIN T -2 See Interp. 09/30/2025 5:59 AM SQUILGEER [facility] Blood Venipuncture / Unknown 09/30/2025 5:08 AM SQUILGEER 09/30/2025 5:27 AM SQUILGEER Narrative [facility] - 09/30/2025 5:59 AM SQUILGEER Troponin Detectable but normal range. Delta not changing. Delay in collection of timed specimen beyond recommended collection interval. Results must be interpreted in clinical context. 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: RON : 1975 Requested By: Order Number: [id number] Reading : Nayan Medel Measurements Intervals Lawson Rate: 95 P: 78 RI: 150 QRS: 145 QRSD: 90 T: 24 QT: 354 QTc: 444 Interpretive Statements Normal sinus rhythm Low voltage QRS Lateral infarct, age undetermined Abnormal ECG No previous ECG available for comparison Electronically Signed On 09-30-2025 7:55:48 SQUILGEER by Nayan Medel Procedure Note Nayan Medel MD - 09/30/2025 [place] [address] Test Date: 2025-09-30 Pat Name: [facility] Department: 90 Room: 24 Gender: Male Technical Planner: RON : 1975 Requested By: Order Number: [id number] Mami Medel Measurements Intervals Lawson Rate: 95 P: 78 RI: 150 QRS: 145 QRSD: 90 T: 24 QT: 354 QTc: 444 Interpretive Statements Normal sinus rhythm Low voltage QRS Lateral infarct, age undetermined Abnormal ECG No previous ECG available for comparison Electronically Signed On 09-30-2025 7:55:48 SQUILGEER by Nayan Medel Sameer Scherer MD ECG ORDERABLES Final Result Performing Organization Address City/[facility]/ZIP Co de Phone Number INTERFACE SYSTEM Refer to clinic/hospital department * CT CEREBRAL PERFUSION STDY W CONT (09/30/2025 1:37 AM SQUILGEER) Anatomical Region Laterality Modality Head Computed Tomogra phy 09/30/2025 1:38 AM SQUILGEER Impressions 09/30/2025 1:52 AM SQUILGEER IMPRESSION: Normal brain perfusion study. DICTATION LOCATION: Location 4 Narrative 09/30/2025 1:[address] CEREBRAL PERFUSION STDY W CONT EXAM DATE: 09/30/2025 1:37 AM HISTORY: Stroke suspected TECHNIQUE: Multiphasic CT perfusion performed after intravenous administration of contrast. RAPID imaging analysis was then performed using CT perfusion scan data. FINDINGS/RAPID OUTPUTS: Cerebral blood flow (less than 30%) threshold: 0 mL Perfusion (TMax greater than 6.0 sec.) volume: 0 mL Mismatch volume: 0 mL Mismatch ratio: None AIF waveform: Satisfactory Procedure Note Dayanna Foley DO - 09/30/2025 CT CEREBRAL PERFUSION STDY W CONT EXAM DATE: 09/30/2025 1:37 AM HISTORY: Stroke suspected TECHNIQUE: Multiphasic CT perfusion performed after intravenous administration of contrast. RAPID imaging analysis was then performed using CT perfusion scan data. FINDINGS/RAPID OUTPUTS: Cerebral blood flow (less than 30%) threshold: 0 mL Perfusion (TMax greater than 6.0 sec.) volume: 0 mL Mismatch volume: 0 mL Mismatch ratio: None AIF waveform: Satisfactory IMPRESSION: Normal brain perfusion study. DICTATION LOCATION: Location 4 us Kenan Soto Head MD CT ORDERABLES Final Result * CTA HEAD AND NECK W AND/OR WO CONTRAST (09/30/2025 1:30 AM SQUILGEER) Anatomical Region Laterality Modality Head Computed Tomogra phy 09/30/2025 1:30 AM SQUILGEER Impressions 09/30/2025 1:36 AM SQUILGEER IMPRESSION: CTA Head: No intracranial proximal arterial stenosis/occlusion, aneurysm, or arteriovenous malformation. CTA Neck: No cervical carotid or vertebral artery occlusion, dissection, or hemodynamically significant stenosis. DICTATION LOCATION: Location 4 Narrative 09/30/2025 1:36 AM SQUILGEER EXAM: CTA HEAD AND NECK W AND/OR WO CONTRAST, 09/30/2025 1:30 AM HISTORY: Male Neuro deficit, acute, stroke suspected TECHNIQUE: During the rapid bolus intravenous infusion of IOPAMIDOL 76 % INTRAVENOUS SOLUTION (MULTI-DOSE BULK PACK) Given:90 mL IV, thin section axial images were obtained of the head and neck from the aortic arch through the vertex. 3-D maximum intensity projection reformatted images of the cervical and intracranial vasculature were generated in multiple planes. For cervical internal carotid artery stenoses, the degree of stenosis is calculated with reference to the distal cervical internal carotid artery diameter (NASCET methodology). In accordance with CT policies/protocols and the ALARA principal, radiation dose reduction techniques (such as automated exposure control, adjustment of mA/kV according to patient size and/or iterative reconstruction technique) were utilized for this examination. COMPARISON: Separate noncontrast head CT was reported prior. FINDINGS: Aortic arch: The aortic arch anatomy is conventional. There is no significant atherosclerotic disease of the visible aortic arch. There is no evidence of aortic aneurysm or dissection. Subclavian arteries: There is no stenosis within the visible subclavian arteries. Allowing for mild motion artifact. Right carotid artery: The right common, internal and external carotid arteries are widely patent without dissection or significant stenosis by NASCET methodology. Left carotid artery: The left common, internal and external carotid arteries are widely patent without dissection or significant stenosis by NASCET methodology. Anterior circulation: There are no occlusions or hemodynamically significant proximal stenoses within the bilateral internal carotid, anterior cerebral and middle cerebral arteries. The distal segments of the anterior circulation are normal. There is no aneurysm or arteriovenous malformation. Vertebral arteries: The extracranial vertebral arteries and origins are widely patent without dissection or significant stenosis. The left vertebral artery is dominant. Posterior circulation: There are no occlusions or hemodynamically significant proximal stenoses within the bilateral intracranial vertebral, basilar and posterior cerebral arteries. The distal segments of the posterior circulation are normal. There is no aneurysm or arteriovenous malformation. Other: There is no evidence of abnormal enhancement. The major intracranial venous structures appear grossly unremarkable. No significant findings identified within the visible chest and neck. Procedure Note Jayden Richards MD - 09/30/2025 EXAM: CTA HEAD AND NECK W AND/OR WO CONTRAST, 09/30/2025 1:30 AM HISTORY: Male Neuro deficit, acute, stroke suspected TECHNIQUE: During the rapid bolus intravenous infusion of IOPAMIDOL 76 % INTRAVENOUS SOLUTION (MULTI-DOSE BULK PACK) Given:90 mL IV, thin section axial images were obtained of the head and neck from the aortic arch through the vertex. 3-D maximum intensity projection reformatted images of the cervical and intracranial vasculature were generated in multiple planes. For cervical internal carotid artery stenoses, the degree of stenosis is calculated with reference to the distal cervical internal carotid artery diameter (NASCET methodology). In accordance with CT policies/protocols and the ALARA principal, radiation dose reduction techniques (such as automated exposure control, adjustment of mA/kV according to patient size and/or iterative reconstruction technique) were utilized for this examination. COMPARISON: Separate noncontrast head CT was reported prior. FINDINGS: Aortic arch: The aortic arch anatomy is conventional. There is no significant atherosclerotic disease of the visible aortic arch. There is no evidence of aortic aneurysm or dissection. Subclavian arteries: There is no stenosis within the visible subclavian arteries. Allowing for mild motion artifact. Right carotid artery: The right common, internal and external carotid arteries are widely patent without dissection or significant stenosis by NASCET methodology. Left carotid artery: The left common, internal and external carotid arteries are widely patent without dissection or significant stenosis by NASCET methodology. Anterior circulation: There are no occlusions or hemodynamically significant proximal stenoses within the bilateral internal carotid, anterior cerebral and middle cerebral arteries. The distal segments of the anterior circulation are normal. There is no aneurysm or arteriovenous malformation. Vertebral arteries: The extracranial vertebral arteries and origins are widely patent without dissection or significant stenosis. The left vertebral artery is dominant. Posterior circulation: There are no occlusions or hemodynamically significant proximal stenoses within the bilateral intracranial vertebral, basilar and posterior cerebral arteries. The distal segments of the posterior circulation are normal. There is no aneurysm or arteriovenous malformation. Other: There is no evidence of abnormal enhancement. The major intracranial venous structures appear grossly unremarkable. No significant findings identified within the visible chest and neck. IMPRESSION: CTA Head: No intracranial proximal arterial stenosis/occlusion, aneurysm, or arteriovenous malformation. CTA Neck: No cervical carotid or vertebral artery occlusion, dissection, or hemodynamically significant stenosis. DICTATION LOCATION: Location 4 us Kenan Casper MD CT ORDERABLES Final Result * CT HEAD WO CONTRAST STROKE PROTOCOL (09/30/2025 1:23 AM SQUILGEER) Anatomical Region Laterality Modality Head Computed Tomogra phy 09/30/2025 1:24 AM SQUILGEER Impressions 09/30/2025 1:31 AM SQUILGEER IMPRESSION: No acute intracranial process. Encephalomalacia in the left parieto-occipital lobe. Important findings were communicated to the stroke nurse on 09/30/2025 1:[address] Dayanna Foley. DICTATION LOCATION: Location 4 Narrative 09/30/2025 1:31 AM SQUILGEER EXAM: CT HEAD WO CONTRAST STROKE PROTOCOL, 09/30/2025 1:23 AM HISTORY: 50 years Male Neuro deficit, acute, stroke suspected TECHNIQUE: Axial images of the head were obtained from skull base to vertex without the use of intravenous contrast. Sagittal and coronal reformations were generated. In accordance with CT policies/protocols and the ALARA principal, radiation dose reduction techniques (such as automated exposure control, adjustment of mA/kV according to patient size and/or iterative reconstruction technique) were utilized for this examination. FINDINGS: Brain parenchyma, ventricles, dura, meninges, and extra-axial spaces: Encephalomalacia within the left parietal-occipital lobe. No abnormal attenuation of brain parenchyma is present. No acute intracranial hemorrhage or abnormal extra-axial fluid collections are present. Vascular structures: No hyperdense arteries or veins. Calvarium, visualized portions of the mastoids, paranasal sinuses, and orbits: The calvarium is intact. The mastoid air cells are clear. The visualized paranasal sinuses are normal. Orbital structures are unremarkable. Procedure Note Dayanna Foley, DO - 09/30/2025 EXAM: CT HEAD WO CONTRAST STROKE PROTOCOL, 09/30/2025 1:23 AM HISTORY: 50 years Male Neuro deficit, acute, stroke suspected TECHNIQUE: Axial images of the head were obtained from skull base to vertex without the use of intravenous contrast. Sagittal and coronal reformations were generated. In accordance with CT policies/protocols and the ALARA principal, radiation dose reduction techniques (such as automated exposure control, adjustment of mA/kV according to patient size and/or iterative reconstruction technique) were utilized for this examination. FINDINGS: Brain parenchyma, ventricles, dura, meninges, and extra-axial spaces: Encephalomalacia within the left parietal-occipital lobe. No abnormal attenuation of brain parenchyma is present. No acute intracranial hemorrhage or abnormal extra-axial fluid collections are present. Vascular structures: No hyperdense arteries or veins. Calvarium, visualized portions of the mastoids, paranasal sinuses, and orbits: The calvarium is intact. The mastoid air cells are clear. The visualized paranasal sinuses are normal. Orbital structures are unremarkable. IMPRESSION: No acute intracranial process. Encephalomalacia in the left parieto-occipital lobe. Important findings were communicated to the stroke nurse on 09/30/2025 1:[address] Dayanna Foley. DICTATION LOCATION: Location [address] ORDERABLES Final Result * TROPONIN BASELINE, 5TH GEN (09/30/2025 1:12 AM SQUILGEER) TROPONIN T, BASELINE 5TH GEN 13 <=15 ng/L 09/30/2025 1:45 AM SQUILGEER [facility] Blood Venipuncture / Unknown 09/30/2025 1:12 AM SQUILGEER 09/30/2025 1:14 AM SQUILGEER Narrative [facility] - 09/30/2025 1:45 AM SQUILGEER Troponin Detectable but normal range. Sameer Scherer MD CHEMISTRY ORDERABLES Final Resul t Performing Organization Address City/[facility]/ZIP Co de Phone Number [facility] [id number] [place] [address] * TSH REFLEXIVE (09/30/2025 1:12 AM SQUILGEER) Pathologist [facility] TSH 2.04 0.27 - 4.20 uIU/mL 09/30/2025 3:40 AM SQUILGEER [facility] Blood Venipuncture / Unknown 09/30/2025 1:12 AM SQUILGEER 09/30/2025 1:14 AM SQUILGEER Shree Naranjo DO CHEMISTRY ORDERABLE S Final Result Performing Organization Address City/[facility]/ZIP Co de Phone Number [facility] [id number] [place] [address] * (ABNORMAL) LIPID PANEL (09/30/2025 1:12 AM SQUILGEER) CHOLESTEROL 182 <200 mg/dL 09/30/2025 3:40 AM [facility] TRIGLYCERIDE 228(H) <150 mg/dL 09/30/2025 3:40 AM [facility] HDL 34(L) 40 - 59 mg/dL 09/30/2025 3:40 AM [facility] LDL CALCULATED 102(H) <100 mg/dL 09/30/2025 3:40 AM [facility] NON-HDL CHOLESTEROL 148(H) <130 mg/dL 09/30/2025 3:40 AM [facility] Blood Venipuncture / Unknown 09/30/2025 1:12 AM SQUILGEER 09/30/2025 1:14 AM SQUILGEER Narrative [facility] - 09/30/2025 3:40 AM SQUILGEER TOTAL CHOLESTEROL mg/dL Desirable <200 Borderline high 200-239 High >=240 TRIGLYCERIDES mg/dL Normal <150 Borderline high 150-199 High 200-499 Very high >=500 HDL CHOLESTEROL mg/dL Low <40 Normal 40-59 Desirable >=60 NON HDL CHOLESTEROL mg/dL Optimal <130 Near Optimal 130-159 Borderline High 160-189 Very High >=190 CALCULATED LDL mg/dL LDL <70, OPTIMAL if have Atherosclerotic cardiovascular disease (ASCVD) or intermediate or higher (>7.5%) 10 year risk of ASCVD including most adults with diabetes. LDL <100, Optimal in adult patients with low (<7.5%) 10 year ASCVD risk LDL 100-160, Suboptimal LDL >160, High LDL >190, Very high LDL calculated using the Friedewald equation. ATPIII Guidelines Reference Ranges for Lipid Panels (NCEP/AMA) . Shree Naranjo DO CHEMISTRY ORDERABLE S Final Result [facility] CLIA# [id number] [place] [address] * (ABNORMAL) COMPREHENSIVE METABOLIC PANEL (09/30/2025 1:12 AM [facility]) [facility] SODIUM 145 136 - 145 mmol/L 09/30/2025 1:45 AM [facility] POTASSIUM 4.0 3.4 - 5.1 mmol/L 09/30/2025 1:45 AM [facility] CHLORIDE 109(H) 98 - 107 mmol/L 09/30/2025 1:45 AM [facility] CO2 22 22 - 29 mmol/L 09/30/2025 1:45 AM [facility] CALCIUM 9.1 8.6 - 10.4 mg/dL 09/30/2025 1:45 AM [facility] BUN 18 6 - 20 mg/dL 09/30/2025 1:45 AM [facility] CREATININE 1.18(H) 0.67 - 1.17 mg/dL 09/30/2025 1:45 AM [facility] GLUCOSE 99 74 - 99 mg/dL 09/30/2025 1:45 AM [facility] TOTAL PROTEIN 7.0 6.3 - 8.7 g/dL 09/30/2025 1:45 AM [facility] ALBUMIN 4.4 3.5 - 5.2 g/dL 09/30/2025 1:45 AM [facility] BILIRUBIN TOTAL 0.3 0.0 - 1.2 mg/dL 09/30/2025 1:45 AM [facility] ALKALINE PHOSPHATASE 70 40 - 150 U/L 09/30/2025 1:45 AM [facility] AST 22 0 - 41 U/L 09/30/2025 1:45 AM [facility] ALT 27 0 - 41 U/L 09/30/2025 1:45 AM [facility] GFR >60 >=60 mL/min/1.7 3 sq meter 09/30/2025 1:45 AM [facility] Comment:eGFR calculated with 2020 CKD-EPI equation. Vegetarian diet, extremely high or low muscle mass, and may affect results. Cystatin C with Glomerular Filtration Rate is a suitable alternative for these patients. ANION GAP 14 8 - 16 mmol/L 09/30/2025 1:45 AM SQUILGEER [facility] Blood Venipuncture / Unknown 09/30/2025 1:12 AM SQUILGEER 09/30/2025 1:14 AM SQUILGEER Sameer Scherer MD CHEMISTRY ORDERABLES Final Resul t Performing Organization Address City/[facility] Co de Phone Number [facility] CLIA# [id number] [place] [address] * (ABNORMAL) POC GLUCOSE (09/30/2025 1:11 AM SQUILGEER) GLUCOSE POC 111(H) 74 - 99 mg/dL 09/30/2025 1:11 AM SQUILGEER [facility] POINT OF CARE SPECIMEN SOURCE, GLUCOSE POC Whole Blood 09/30/2025 1:11 AM SQUILGEER [facility] POINT OF CARE Blood, whole 09/30/2025 1:11 AM SQUILGEER 09/30/2025 1:18 AM SQUILGEER Sameer Scherer MD POINT OF CARE TESTING Final Resu lt Performing Organization Address [facility] de Phone Number [facility] POINT OF CARE CLIA # [id number] [place] [address] * PROTIME-INR (09/30/2025 1:11 AM SQUILGEER) PROTIME 13.0 11.5 - 14.7 Seconds 09/30/2025 1:37 AM SQUILGEER [facility] INR 1.0 0.9 - 1.1 09/30/2025 1:37 AM SQUILGEER [facility] Blood Venipuncture / Unknown 09/30/2025 1:11 AM SQUILGEER 09/30/2025 1:15 AM SQUILGEER Sameer Scherer MD HEMATOLOGY ORDERABLES Final Resu lt [facility] CLIA# [id number] [place] [address] * TYPE AND SCREEN (09/30/2025 1:11 AM SQUILGEER) Pathologist [facility] ABO GROUP B 09/30/2025 2:36 AM SQUILGEER [facility] RH (D) TYPE Positive 09/30/2025 2:36 AM SQUILGEER [facility] ANTIBODY SCREEN Negative 09/30/2025 2:36 AM SQUILGEER [facility] Blood Venipuncture / Unknown 09/30/2025 1:11 AM SQUILGEER 09/30/2025 1:15 AM SQUILGEER Sameer Scherer MD BLOOD BANK ORDERABLES Edited Res ult - Final Performing Organization Address City/[facility]/ZIP Co de Phone Number [facility] CLIA# [id number] [place] [address] * (ABNORMAL) HEMOGLOBIN A1C (09/30/2025 1:11 AM SQUILGEER) Pathologist [facility] HEMOGLOBIN A1C 6.0(H) <=5.6 % 09/30/2025 3:44 AM SQUILGEER [facility] EST. AVG GLUCOSE, A1C 126 mg/dL 09/30/2025 3:44 AM SQUILGEER [facility] Blood Venipuncture / Unknown 09/30/2025 1:11 AM SQUILGEER 09/30/2025 1:15 AM SQUILGEER Narrative [facility] - 09/30/2025 3:44 AM SQUILGEER HGB A1C INTERPRETATION NORMAL: <5.7% PRE-DIABETES: 5.7 - 6.4% DIABETES: 6.5% OR GREATER Shree Naranjo DO CHEMISTRY ORDERABLE S Final Result [facility] CLIA# [id number] [place] [address] * Critical Care (09/30/2025 1:09 AM SQUILGEER) Narrative Sameer Scherer MD - 09/30/2025 1:09 AM SQUILGEER Sameer Scherer MD 09/30/2025 6:35 AM Critical Care Performed by: Sameer Scherer MD Authorized by: Sameer Scherer MD Critical care provider statement: Critical care time (minutes): 31 Critical care time was exclusive of: Separately billable procedures and treating other patients and teaching time Critical care was necessary to treat or prevent imminent or life-threatening deterioration of the following conditions: 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 or 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 Critical care was time spent personally by me on the following activities: Development of treatment plan with patient or surrogate, ordering and performing treatments and interventions, ordering and review of laboratory studies, ordering and review of radiographic studies, discussions with consultants, pulse oximetry, re-evaluation of patient's condition, evaluation of patient's response to treatment, examination of patient, review of old charts, interpretation of cardiac output measurements, blood draw for specimens and obtaining history from patient or surrogate I assumed direction of critical care for this patient from another provider in my specialty: no Care discussed with: admitting provider Sameer Scherer MD PROCEDURE/MINOR SURGICAL ORDERAB LES Final Result from Last 3 Months Insurance RX [employer] Member Subscriber Plan / Payer (Ef fective for All Dates) Name:Steve Bernard Jr. Relation to Subscriber:Self Name:Steve Bernard Jr. Subscriber ID:Not on file Payer ID:Not on file Type:RX Commercial Address: [address] [employer] Commercial Advance Directives For more information, please contact: [phone] * Full Code (Latest Code Status on File) Date Activated Date Inactivated Comments 09/30/2025 2:56 AM 10/01/2025 7:12 PM * Default Full Code - Needs Discussion Date Activated Date Inactivated Comments 09/30/2025 2:17 AM 09/30/2025 2:56 AM Care Teams Char Filter Operator Relationship Specialty Start Date End Date Zaid Fatima DO [facility] [address] [address] PCP - General Internal Medicine 09/30/25
[2025-10-08 13:52] LABS: Free T3 3.95 pg/mL (2.71-6.16); Free T4 Free Thyroxine 0.65 ng/dL (0.78-2.19)
[2025-10-08 14:06] LABS: Thyroid Stimulating Hormone 1.630 uIU/mL (0.465-4.680)
[2025-10-11 20:07] LABS: Free Testosterone (Direct) 3.2 pg/mL (7.2-24.0)
== END 2025-10-08 08:34 | disposition home or self-care (01) ==
LOC: ANHGOSHLAB 08:34
PROVIDERS: PCP Internal Medicine; Visit Provider Internal Medicine
DX: F33.1 Major depressive disorder, recurrent, moderate (principal); Z91.89 Other specified personal risk factors, not elsewhere classified; R68.82 Decreased libido
CPT/HCPCS: 36415; 84402; 84403; 84439; 84443; 84481

== ENCOUNTER 2025-10-16 09:34 | Outpatient (CLI) | payer OTHER, SELFPAY ==
--- OUTSIDE RECORDS SUMMARY | 2025-04-17 02:00 | XMS_ITS ---
[facility] Address [address] [place], [place] [id number] Care Team Providers Care Motor Tester Name Role Phone FRANKLIN LUIS A Unavailable [phone] Zaid Fatima Unavailable Unavailable REASON FOR VISIT rash, itchy, burning Encounters Encounter Location Date Provider Diagnosis [facility] [place] [address] [place], [place] [id number] 04/17/2025 LUIS A REID Pain in right foot M79.671 and Pain in left foot M79.672 Assessments Encounter Date Diagnosis (ICD Code) Assessment Notes Treatment Notes Treatment Clinical Notes Section Notes 04/17/2025 Pain in right foot (ICD-10 - M79.671) 04/17/2025 Pain in left foot (ICD-10 - M79.672) Plan Of Treatment No Information History and Physical Notes * Examination Category Sub-Category Detail Notes Category Not es Constitutional Constitutional The patient is a wake, alert, well developed, well groomed and well nourished Dermatologic Skin findings: bilateral, Skin is thin, atrophic and lacking pedal hair. Musculoskeletal Muscle Strength Muscle strength is 5/5 in regards to dorsiflexion, plantarflexion, inversion, and eversion in bilateral lower extremities Neurologic Gross sensation Gross sensation is intact to light touch Vascular Dorsalis pedis pulse: bilateral, 2/4 Posterior tibial pulse: bilaterally, 2/4 Capillary refill: bilaterally, less th an 3 seconds Progress Notes * Steve BERNARD WDOB:1975 (50 yo M)Acc No.[id number]:04/17/2025 Progress Notes Patient: Qasim rinku Steve Romo Provider: Emir REID :1975 A ge:50 Y S ex:Male Date:04/17/2025 [facility] Subjective: * Chief Complaints: * R amador, itchy, burning * ROS: G eneral / Constitutional: Patient denies f atigue, fever, chills, headache, lightheadedness, night sweats. P atient complains of p ain. M usculoskeletal: Patient denies m uscle cramps, weakness, broken foot bone.? P eripheral Vascular: Patient denies a bsent pulses in feet, ulceration of feet.? S kin: Patient denies w arts. P atient complains of i tching, rash. N eurologic: Patient denies l oss of use of extremity, paralysis. ? Objective: * Examination: C onstitutional: Constitutional T he patient is awake, alert, well developed, well groomed and well nourished. D ermatologic: Skin findings: b ilateral, Skin is thin, atrophic and lacking pedal hair.. M usculoskeletal: Muscle Strength M uscle strength is 5/5 in regards to dorsiflexion, plantarflexion, inversion, and eversion in bilateral lower extremities. ? N eurologic: Gross sensation G ross sensation is intact to light touch.? V ascular: Dorsalis pedis pulse: b ilateral, 2/4. Posterior tibial pulse: b ilaterally, 2/4. Capillary refill: b ilaterally, less than 3 seconds. ? Assessment: * Assessment: 1. P ain in right foot - M79.671 (Primary) 2 . P ain in left foot - M79.672? * Electronic signature of PAUL REID DPM on 10/16/2025 at 09:41 AM SKILLED LABORER Sign off status: Pending * Provider: Emir REID Date: 0 04/17/2025 Generated for Gilda chin/Olena/Chuckitting on: 09:41 AM SKILLED LABORER
--- OUTSIDE RECORDS SUMMARY | 2025-10-16 09:41 | XMS_ITS | Patient Health Record ---
Author Organization [facility] Address [address] [place], [place] [id number] Care Team Providers Care Gwot Ia/I[employer] Intelligence Support Name Role Phone FRANKLINLUIS A Unavailable [phone] Zaid Fatima Unavailable Unavailable Reason For Referral No Information Plan Of Treatment No Information
--- OUTSIDE RECORDS SUMMARY | 2025-10-16 09:41 | XMS_ITS | Clinical Summary ---
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 Gender Identity Not on file Sexual Orientation Not on file Last Filed Vital Signs Vital Sign Reading Time Taken Comments Blood Pressure 139/95 12/10/2023 5:40 AM [facility] LEVEL CLINICIAN Pulse 90 12/10/2023 5:35 AM [employer] LEVEL CLINICIAN Temperature 36.7 C (98.1 F) 12/10/2023 1:45 AM [employer] LEVEL CLINICIAN Respiratory Rate 20 12/10/2023 1:45 AM [employer] LEVEL CLINICIAN Oxygen Saturation 99% 12/10/2023 5:35 AM MID LEVEL CLINICIAN Inhaled Oxygen Concentration - - Weight 84.8 kg (187 lb) 12/10/2023 1:45 AM MID LEVEL CLINICIAN Height 170.2 cm (5' 7) 12/10/2023 1:45 AM [employer] LEVEL CLINICIAN Body Mass Index 29.29 12/10/2023 1:45 AM MID LEVEL CLINICIAN Plan of Treatment Health Maintenance Due Date [...] Td or Tdap) 08/01/2033 Insurance [employer] SIG [id number] * Guarantor: [employer],[facility] Account Type Relation to Patient Date of Phone Billing Address [employer] [address] [place] [address] [employer] COMPENSATION GENERIC COMPENSATION Care Teams Svp Marketing Relationship Specialty Start Date End Date Zaid Fatima DO PCP - General 04/20/12
--- OUTSIDE RECORDS SUMMARY | 2025-10-16 09:41 | XMS_ITS | Clinical Summary ---
Author Organization [facility] Address [address] [place] [address] Phone Care Team Providers Care Visiting Nurse Name Role Phone Zaid Fatima DO Primary Care Provider Allergies Active Allergy Reactions Criticality Noted Date Comments Nsaids (Non-Steroidal Anti-I nflammatory Drug) Unknown 09/30/2025 Medications apixaban (ELIQUIS) 5 mg tablet Take 1 Tablet (5 mg) by mouth 2 times daily. 60 Tablet 2 10/01/2025 4:14 PM RUBY ON RAILS ENGINEER 10/01/2025 12/31/19 26 Active aspirin (ECOTRIN EC) 81 mg Tablet, Delayed Release (E.C.) Take 1 Tablet (81 mg) by mouth daily. 30 Tablet 2 10/01/2025 4:14 PM RUBY ON RAILS ENGINEER 10/01/2025 12/31/19 26 Active atorvastatin (LIPITOR) 80 mg tablet Take 1 Tablet (80 mg) by mouth daily at bedtime. 30 Tablet 2 10/01/2025 4:14 PM RUBY ON RAILS ENGINEER 10/01/2025 12/31/19 26 Active carvedilol (COREG) 25 mg tablet Take 1 Tablet (25 mg) by mouth every 12 hours. 60 Tablet 2 10/01/2025 4:14 PM RUBY ON RAILS ENGINEER 10/01/2025 12/31/19 26 Active lisinopriL (PRINIVIL) 10 mg tablet Take 1 Tablet (10 mg) by mouth daily. 90 Tablet 10/01/2025 4:14 PM RUBY ON RAILS ENGINEER 10/01/2025 12/31/19 26 Active spironolactone (ALDACTONE) 25 mg tablet Starting 10/02/25, Take One-Half Tablet (12.5 mg) by mouth daily. 15 Tablet 2 10/01/2025 4:14 PM RUBY ON RAILS ENGINEER 10/02/2025 01/01/20 26 Active Active Problems Problem Noted Date Diagnosed Date Ischemic stroke 10/01/2025 Transient ischemic attack 09/30/2025 Encounter for counseling for tobacco use disorde r 09/30/2025 Acute kidney injury 09/30/2025 Cerebrovascular disease 09/30/2025 Aspirin long-term use 09/30/2025 Mixed hyperlipidemia 09/30/2025 Low HDL (under 40) 09/30/2025 Atrial fibrillation 09/30/2025 Anticoagulated on Eliquis 09/30/2025 Essential hypertension 09/30/2025 Atherosclerosis of coronary artery bypass graft of [place] heart without angina pectoris 09/30/2025 Class 1 [...] STL ABSTRACTION Provider, Abstract 09/30/2025 1:09 AM RUBY ON RAILS ENGINEER - 10/01/2025 4:59 PM RUBY ON RAILS ENGINEER Hospital Encounter [facility] [address] [place] [address] Sameer Scherer MD Vaynman, Alexander Richard, DO [...] worry about transportation for future doctor visits, scrap picker medication, etc.? No 2024 Housing Stability [...] Comments Blood Pressure 137/90 10/01/2025 3:18 PM RUBY ON RAILS ENGINEER Pulse 91 10/01/2025 3:18 PM RUBY ON RAILS ENGINEER Temperature 36.7 C (98 F) 10/01/2025 3:18 PM RUBY ON RAILS ENGINEER Respiratory Rate 24 10/01/2025 3:18 PM RUBY ON RAILS ENGINEER Oxygen Saturation 99% 10/01/2025 3:18 PM RUBY ON RAILS ENGINEER Inhaled Oxygen Concentration - - Weight 84.8 kg (187 lb) 09/30/2025 4:00 AM RUBY ON RAILS ENGINEER Height 167.6 cm (5' 6) 09/30/2025 4:00 AM RUBY ON RAILS ENGINEER Body Mass Index 30.18 09/30/2025 4:00 AM RUBY ON RAILS ENGINEER Plan of Treatment Health Maintenance Due Date [...] Procedure Name Priority Date/Time Associated Diagnosis Comments TELEMETRY REPORT 10/15/2025 11:0 8 AM RUBY ON RAILS ENGINEER TELEMETRY REPORT 10/08/2025 3:51 PM RUBY ON RAILS ENGINEER TELEMETRY REPORT 10/08/2025 3:30 PM RUBY ON RAILS ENGINEER ECHOCARDIOGRAM W/ CONTRAST AGENT Routine 10/01/2025 8:59 AM RUBY ON RAILS ENGINEER CBC WITH DIFFERENTIAL Routine 10/01/2025 4:11 AM RUBY ON RAILS ENGINEER BASIC METABOLIC PANEL Routine 10/01/2025 4:11 AM RUBY ON RAILS ENGINEER MRI BRAIN WO CONTRAST Stat 09/30/2025 1:14 PM RUBY ON RAILS ENGINEER VERIFICATION BLOOD GROUP Stat 09/30/2025 10:47 AM RUBY ON RAILS ENGINEER Encounter for blood typing TROPONIN 6 HR, 5TH GEN Timed Study 5 7:18 AM RUBY ON RAILS ENGINEER TROPONIN 2 HR, 5TH GEN Timed Study 5 5:08 AM RUBY ON RAILS ENGINEER NURSING SERVICE ADMINISTRATOR EVALUATE AND TREAT Routine 3:45 AM RUBY ON RAILS ENGINEER PT EVAL AND TREAT Routine 09/30/2025 3:4 5 AM RUBY ON RAILS ENGINEER OT EVAL AND TREAT Routine 09/30/2025 3:4 5 AM RUBY ON RAILS ENGINEER EKG 12-LEAD Stat 09/30/2025 1:58 AM RUBY ON RAILS ENGINEER CT CEREBRAL PERFUSION STDY W CONT Stat 09/30/2025 1:37 AM RUBY ON RAILS ENGINEER CTA HEAD AND NECK W AND/OR WO CONTRAST Stat 09/30/2025 1:30 AM RUBY ON RAILS ENGINEER CT HEAD WO CONTRAST STROKE PROTOCOL Stat 09/30/2025 1:23 AM RUBY ON RAILS ENGINEER LIPID PANEL Stat 09/30/2025 1:12 AM RUBY ON RAILS ENGINEER TSH REFLEXIVE Stat 09/30/2025 1:12 AM RUBY ON RAILS ENGINEER COMPREHENSIVE METABOLIC PANEL Stat 09/30/2025 1:12 AM RUBY ON RAILS ENGINEER TROPONIN BASELINE, 5TH GEN Stat 09/30/2025 1:12 AM RUBY ON RAILS ENGINEER TYPE AND SCREEN Stat 09/30/2025 1:11 AM RUBY ON RAILS ENGINEER POC GLUCOSE Stat 09/30/2025 1:11 AM RUBY ON RAILS ENGINEER HEMOGLOBIN A1C Stat 09/30/2025 1:11 AM RUBY ON RAILS ENGINEER PROTIME-INR Stat 09/30/2025 1:11 AM RUBY ON RAILS ENGINEER CBC WITH DIFFERENTIAL Stat 09/30/2025 1:11 AM RUBY ON RAILS ENGINEER CRITICAL CARE Routine 09/30/2025 1:09 AM RUBY ON RAILS ENGINEER from Last 3 Months Results * TELEMETRY REPORT (10/15/2025 11:08 AM RUBY ON RAILS ENGINEER) Only the most recent of3 resultswithin the time period is included. us Provider Scanning ECG ORDERABLES Final Result * ECHOCARDIOGRAM W/ CONTRAST AGENT (10/01/2025 8:59 AM RUBY ON RAILS ENGINEER) EJECTION FRACTION 25 INTERFACE SYSTEM 10/01/2025 8:31 AM RUBY ON RAILS ENGINEER Narrative INTERFACE SYSTEM - 10/01/2025 9:16 AM RUBY ON RAILS ENGINEER [facility] Transthoracic Echocardiogram Patient: Steve Bernard Study ID: [id number] Gender: M : 1975 Age: 50 Race: CAU Height 167.6cm Study Date: 10/01/2025 Weight: 84.8kg Access. #: [id number] BP: 139 / 78 *Referring Physician:Trung Jean Baptiste *Ordering Physician:Trung Jean Baptiste *Substation Wireman:Lacy Martines [facility] biomedical equipment support specialist: Nurse: Indications: Atrial fibrillation. Cerebrovascular accident. History: [...] at baseline or with provocation, shows no bczly-be-llsu atrial level shunt. - Tricuspid valve: Mild [...] at baseline or with provocation, shows no kcooz-ij-nasg atrial level shunt. RIGHT VENTRICLE: The cavity [...] values inside specified reference range. Procedure [facility]: [facility] No prior study was available for comparison. [...] Prepared and Electronically Authenticated Mayito Glover M.D. [id number]:26 Procedure Note Mayito Glover MD - 10/01/2025 [facility] Transthoracic Echocardiogram Patient: Steve Bernard Study ID: [id number] Gender: M : 1975 Age: 50 Race: [facility] Height 167.6cm Study Date: 10/01/2025 Weight: 84.8kg Access. #: [id number] BP: 139 / 78 *Referring Physician:* Trung Triplett *Ordering Physician:Trung Jean Baptiste *Substation Wireman:Lacy Martines [facility] biomedical equipment support specialist: Nurse: Indications: Atrial fibrillation. Cerebrovascular accident. History: [...] at baseline or with provocation, shows no keaiy-js-whjc atrial level shunt. - Tricuspid valve: Mild [...] at baseline or with provocation, shows no uybie-fe-qars atrial level shunt. RIGHT VENTRICLE: The cavity [...] Bedside. Preparedand Electronically Authenticated Mayito Glover M.D. [id number] us Trung Triplett ADMITTANCE ATTENDANT US ORDERABLES Final Resu lt INTERFACE SYSTEM Refer to clinic/hospital department * CBC WITH DIFFERENTIAL (10/01/2025 4:11 AM RUBY ON RAILS ENGINEER) Only the most recent of2 resultswithin the time period is included. WBC 5.7 4.0 - 9.8 K/uL 10/01/2025 5:19 AM RUBY ON RAILS ENGINEER [facility] RBC 4.91 4.50 - 5.40 M/uL 10/01/2025 5:19 AM RUBY ON RAILS ENGINEER [facility] HEMOGLOBIN 15.0 13.6 - 16.5 g/dL 10/01/2025 5:19 AM RUBY ON RAILS ENGINEER [facility] HEMATOCRIT 43.4 40.0 - 48.0 % 10/01/2025 5:19 AM RUBY ON RAILS ENGINEER [facility] MCV 88.4 82.0 - 99.0 fL 10/01/2025 5:19 AM RUBY ON RAILS ENGINEER [facility] MCH 30.5 27.2 - 32.6 pg 10/01/2025 5:19 AM RUBY ON RAILS ENGINEER [facility] MCHC 34.6 31.5 - 35.5 g/dL 10/01/2025 5:19 AM RUBY ON RAILS ENGINEER [facility] RDW 13.0 11.5 - 14.5 % 10/01/2025 5:19 AM RUBY ON RAILS ENGINEER [facility] RDW-STDEV 42.2 37.1 - 48.7 fL 10/01/2025 5:19 AM RUBY ON RAILS ENGINEER [facility] PLATELETS 212 140 - 350 K/uL 10/01/2025 5:19 AM [facility] MPV 10.6 9.3 - 12.4 fL 10/01/2025 5:19 AM RUBY ON RAILS ENGINEER [facility] NEUTROPHILS 65 % 10/01/2025 5:19 AM RUBY ON RAILS ENGINEER [facility] LYMPHOCYTES 20 % 10/01/2025 5:19 AM RUBY ON RAILS ENGINEER [facility] MONOCYTES 9 % 10/01/2025 5:19 AM RUBY ON RAILS ENGINEER [facility] EOSINOPHILS 5 % 10/01/2025 5:19 AM RUBY ON RAILS ENGINEER [facility] BASOPHILS 1 % 10/01/2025 5:19 AM RUBY ON RAILS ENGINEER [facility] IMMATURE GRANULOCYTES 0 % 10/01/2025 5:19 AM RUBY ON RAILS ENGINEER [facility] NEUTROPHIL ABSOLUTE 3.75 1.90 - 7.00 K/uL 10/01/2025 5:19 AM RUBY ON RAILS ENGINEER [facility] LYMPHOCYTE ABSOLUTE 1.12 0.70 - 4.50 K/uL 10/01/2025 5:19 AM RUBY ON RAILS ENGINEER [facility] MONOCYTE ABSOLUTE 0.54 0.10 - 1.30 K/uL 10/01/2025 5:19 AM RUBY ON RAILS ENGINEER [facility] EOSINOPHIL ABSOLUTE 0.29 0.00 - 0.70 K/uL 10/01/2025 5:19 AM RUBY ON RAILS ENGINEER [facility] BASOPHILS ABSOLUTE 0.03 0.00 - 0.20 K/uL 10/01/2025 5:19 AM [facility] IMMATURE GRANULOCYTES ABSOLUTE 0.01 0.00 - 0.03 K/uL 10/01/2025 5:19 AM [facility] Blood Venipuncture / Unknown 10/01/2025 4:11 AM RUBY ON RAILS ENGINEER 10/01/2025 5:15 AM RUBY ON RAILS ENGINEER Shree Naranjo DO HEMATOLOGY ORDERABL ES Final Result [facility] CLIA# [id number] [place] [address] * (ABNORMAL) BASIC METABOLIC PANEL (10/01/2025 4:11 AM RUBY ON RAILS ENGINEER) SODIUM 137 136 - 145 mmol/L 10/01/2025 5:42 AM [facility] Artify It [facility] POTASSIUM 4.4 3.4 - 5.1 mmol/L 10/01/2025 5:42 AM [facility] Artify It [facility] CHLORIDE 103 98 - 107 mmol/L 10/01/2025 5:42 AM [facility] Artify It [facility] CO2 25 22 - 29 mmol/L 10/01/2025 5:42 AM [facility] Artify It [facility] CALCIUM 9.2 8.6 - 10.4 mg/dL 10/01/2025 5:42 AM [facility] Artify It [facility] BUN 15 6 - 20 mg/dL 10/01/2025 5:42 AM [facility] Artify It [facility] CREATININE 0.97 0.67 - 1.17 mg/dL 10/01/2025 5:42 AM [facility] Artify It [facility] GLUCOSE 141(H) 74 - 99 mg/dL 10/01/2025 5:42 AM [facility] Artify It [facility] GFR >60 >=60 mL/min/1.7 3 sq meter 10/01/2025 5:42 AM RUBY ON RAILS ENGINEER [facility] Comment:eGFR calculated with 2020 CKD-EPI equation. Vegetarian diet, extremely high or low muscle mass, and may affect results. Cystatin C with Glomerular Filtration Rate is a suitable alternative for these patients. ANION GAP 9 8 - 16 mmol/L 10/01/2025 5:42 AM RUBY ON RAILS ENGINEER [facility] Blood Venipuncture / Unknown 10/01/2025 4:11 AM RUBY ON RAILS ENGINEER 10/01/2025 5:11 AM RUBY ON RAILS ENGINEER us Shree Naranjo DO CHEMISTRY ORDERABLE S Final Result [facility] CLIA# [id number] [place] [address] * MRI BRAIN WO CONTRAST (09/30/2025 1:14 PM RUBY ON RAILS ENGINEER) Anatomical Region Laterality Modality Head Magnetic Resonan ce 09/30/2025 1:15 PM RUBY ON RAILS ENGINEER Impressions 09/30/2025 1:28 PM RUBY ON RAILS ENGINEER IMPRESSION: 1. Multiple small acute right frontoparietal cortical infarcts in the middle cerebral artery distribution. 2. 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 DICTATION LOCATION: Location 7 - [facility] Narrative 09/30/2025 1:28 PM RUBY ON RAILS ENGINEER EXAMINATION: MRI BRAIN WO CONTRAST DATE: 09/30/2025 [...] frontal lobe and posterior right parietal lobe. us Krishan Lorenzo MD MR ORDERABLES Edited Resul t - Final * VERIFICATION BLOOD GROUP (09/30/2025 10:47 AM RUBY ON RAILS ENGINEER) ABO GROUP B 09/30/2025 11:52 AM RUBY ON RAILS ENGINEER [facility] RH (D) TYPE Positive 09/30/2025 11:52 AM RUBY ON RAILS ENGINEER [facility] Blood Venipuncture / Unknown 09/30/2025 10:47 AM RUBY ON RAILS ENGINEER 09/30/2025 10:58 AM RUBY ON RAILS ENGINEER us Sameer Scherer MD BLOOD BANK ORDERABLES Final Resu lt [id number] [place] [address] * TROPONIN 6 HR, 5TH GEN (09/30/2025 7:18 AM RUBY ON RAILS ENGINEER) TROPONIN T, 6 HR 5TH GEN 11 <=15 ng/L 09/30/2025 9:22 AM RUBY ON RAILS ENGINEER [facility] DELTA 6HR TROPONIN T -2 See Interp. 09/30/2025 9:22 AM RUBY ON RAILS ENGINEER [facility] Blood Venipuncture / Unknown 09/30/2025 7:18 AM RUBY ON RAILS ENGINEER 09/30/2025 8:48 AM RUBY ON RAILS ENGINEER Narrative [facility] - 09/30/2025 9:22 AM RUBY ON RAILS ENGINEER Troponin Detectable but normal range. Delta indeterminate. us Sameer Scherer MD CHEMISTRY ORDERABLES Final Resul t [facility] [id number] [place] [address] * TROPONIN 2 HR, 5TH GEN (09/30/2025 5:08 AM RUBY ON RAILS ENGINEER) TROPONIN T, 2 HR 5TH GEN 11 <=15 ng/L 09/30/2025 5:59 AM RUBY ON RAILS ENGINEER [facility] DELTA 2HR TROPONIN T -2 See Interp. 09/30/2025 5:59 AM RUBY ON RAILS ENGINEER [facility] Artify It [facility] Blood Venipuncture / Unknown 09/30/2025 5:08 AM RUBY ON RAILS ENGINEER 09/30/2025 5:27 AM RUBY ON RAILS ENGINEER Narrative [facility] - 09/30/2025 5:59 AM RUBY ON RAILS ENGINEER Troponin Detectable but normal range. Delta not changing. Delay in collection of timed specimen beyond recommended collection interval. Results must be interpreted in clinical context. Sameer Scherer MD CHEMISTRY ORDERABLES Final Resul t [facility] CLIA# [id number] [address] [place] [address] * EKG 12-LEAD (09/30/2025 1:58 AM RUBY ON RAILS ENGINEER) 09/30/2025 1:58 AM RUBY ON RAILS ENGINEER [employer] INTERFACE SYSTEM - 09/30/2025 7:55 AM [place] [id number] Test Date: 2025-09-30 Pat Name: [facility] Department: 90 Room: [facility] Gender: Male Spot Remover: RON : 1975 Requested By: Order Number: [id number] Reading : Nayan Medel Measurements Intervals Beryl Rate: 95 P: 78 MI: 150 QRS: 145 QRSD: 90 T: 24 QT: 354 QTc: 444 Interpretive Statements Normal sinus rhythm Low voltage QRS Lateral infarct, age undetermined Abnormal ECG No previous ECG available for comparison Electronically Signed On 09-30-2025 7:55:48 RUBY ON RAILS ENGINEER by Nayan Medel Procedure Note Nayan Medel MD - 09/30/2025 [place] [id number] Test Date: 2025-09-30 Pat Name: [facility] Department: 90 Room: 8224 Gender: Male Spot Remover: RON : 1975 Requested By: Order Number: [id number] Reading : Nayan Medel Measurements Intervals Beryl Rate: 95 P: 78 MI: 150 QRS: 145 QRSD: 90 T: 24 QT: 354 QTc: 444 Interpretive Statements Normal sinus rhythm Low voltage QRS Lateral infarct, age undetermined Abnormal ECG No previous ECG available for comparison Electronically Signed On 09-30-2025 7:55:48 RUBY ON RAILS ENGINEER by Nayan Medel us Sameer Scherer MD ECG ORDERABLES Final Result INTERFACE SYSTEM Refer to clinic/hospital department * CT CEREBRAL PERFUSION STDY W CONT (09/30/2025 1:37 AM RUBY ON RAILS ENGINEER) Anatomical Region Laterality Modality Head Computed Tomogra phy 09/30/2025 1:38 AM RUBY ON RAILS ENGINEER Impressions 09/30/2025 1:52 AM RUBY ON RAILS ENGINEER IMPRESSION: Normal brain perfusion study. DICTATION LOCATION: Location 4 Narrative 09/30/2025 1:52 AM RUBY ON RAILS ENGINEER CT CEREBRAL PERFUSION STDY W CONT EXAM [...] None AIF waveform: Satisfactory Procedure Note Dayanna Foley, DO - 09/30/2025 CT CEREBRAL PERFUSION STDY [...] LOCATION: Location 4 us [address] Soto Head CT ORDERABLES Final Result * CTA HEAD AND NECK W AND/OR WO CONTRAST (09/30/2025 1:30 AM RUBY ON RAILS ENGINEER) Anatomical Region Laterality Modality Head Computed Tomogra phy 09/30/2025 1:30 AM RUBY ON RAILS ENGINEER Impressions 09/30/2025 1:36 AM RUBY ON RAILS ENGINEER IMPRESSION: CTA Head: No intracranial proximal arterial stenosis/occlusion, aneurysm, or arteriovenous malformation. CTA Neck: No cervical carotid or vertebral artery occlusion, dissection, or hemodynamically significant stenosis. DICTATION LOCATION: Location 4 Narrative 09/30/2025 1:36 AM RUBY ON RAILS ENGINEER EXAM: CTA HEAD AND NECK W AND/OR [...] WO CONTRAST STROKE PROTOCOL (09/30/2025 1:23 AM RUBY ON RAILS ENGINEER) Anatomical Region Laterality Modality Head Computed Tomogra phy 09/30/2025 1:24 AM RUBY ON RAILS ENGINEER Impressions 09/30/2025 1:31 AM RUBY ON RAILS ENGINEER IMPRESSION: No acute intracranial process. Encephalomalacia in the left parieto-occipital lobe. Important findings were communicated to the stroke nurse on 09/30/2025 1:[address] Dayanna Foley. DICTATION LOCATION: Location 4 Narrative 09/30/2025 1:31 AM RUBY ON RAILS ENGINEER EXAM: CT HEAD WO CONTRAST STROKE PROTOCOL, [...] structures are unremarkable. Procedure Note Dayanna Foley, - 09/30/2025 EXAM: CT HEAD WO CONTRAST [...] Dr. Dayanna Foley. DICTATION LOCATION: Location 4 us Sameer Scherer MD CT ORDERABLES Final Result * TROPONIN BASELINE, 5TH GEN (09/30/2025 1:12 AM RUBY ON RAILS ENGINEER) TROPONIN T, BASELINE 5TH GEN 13 <=15 ng/L 09/30/2025 1:45 AM RUBY ON RAILS ENGINEER [facility] Artify It [facility] Blood Venipuncture / Unknown 09/30/2025 1:12 AM RUBY ON RAILS ENGINEER 09/30/2025 1:14 AM RUBY ON RAILS ENGINEER Narrative [facility] - 09/30/2025 1:45 AM RUBY ON RAILS ENGINEER Troponin Detectable but normal range. us Sameer Scherer MD CHEMISTRY ORDERABLES Final Resul t [id number] [place] [address] * TSH REFLEXIVE (09/30/2025 1:12 AM RUBY ON RAILS ENGINEER) TSH 2.04 0.27 - 4.20 uIU/mL 09/30/2025 3:40 AM RUBY ON RAILS ENGINEER [facility] Artify It [facility] Blood Venipuncture / Unknown 09/30/2025 1:12 AM RUBY ON RAILS ENGINEER 09/30/2025 1:14 AM RUBY ON RAILS ENGINEER Shree Naranjo DO CHEMISTRY ORDERABLE S Final Result [facility] Artify It [facility] CLIA# [id number] [place] [address] * (ABNORMAL) LIPID PANEL (09/30/2025 1:12 AM RUBY ON RAILS ENGINEER) Pathologist [facility] CHOLESTEROL 182 <200 mg/dL 09/30/2025 3:40 AM RUBY ON RAILS ENGINEER [facility] TRIGLYCERIDE 228(H) <150 mg/dL 09/30/2025 3:40 AM RUBY ON RAILS ENGINEER [facility] HDL 34(L) 40 - 59 mg/dL 09/30/2025 3:40 AM RUBY ON RAILS ENGINEER [facility] LDL CALCULATED 102(H) <100 mg/dL 09/30/2025 3:40 AM RUBY ON RAILS ENGINEER [facility] NON-HDL CHOLESTEROL 148(H) <130 mg/dL 09/30/2025 3:40 AM RUBY ON RAILS ENGINEER [facility] Blood Venipuncture / Unknown 09/30/2025 1:12 AM RUBY ON RAILS ENGINEER 09/30/2025 1:14 AM RUBY ON RAILS ENGINEER Narrative [facility] - 09/30/2025 3:40 AM RUBY ON RAILS ENGINEER TOTAL CHOLESTEROL mg/dL Desirable <200 Borderline high [...] Reference Ranges for Lipid Panels (NCEP/AMA) . us Shree Naranjo DO CHEMISTRY ORDERABLE S Final Result [facility] CLIA# [id number] [place] [address] * (ABNORMAL) COMPREHENSIVE METABOLIC PANEL (09/30/2025 1:12 AM RUBY ON RAILS ENGINEER) SODIUM 145 136 - 145 mmol/L 09/30/2025 1:45 AM [facility] Artify It [facility] POTASSIUM 4.0 3.4 - 5.1 mmol/L 09/30/2025 1:45 AM [facility] CHLORIDE 109(H) 98 - 107 mmol/L 09/30/2025 1:45 AM [facility] Artify It [facility] CO2 22 22 - 29 mmol/L 09/30/2025 1:45 AM [facility] CALCIUM 9.1 8.6 - 10.4 mg/dL 09/30/2025 1:45 AM [facility] BUN 18 6 - 20 mg/dL 09/30/2025 1:45 AM [facility] CREATININE 1.18(H) 0.67 - 1.17 mg/dL 09/30/2025 1:45 AM [facility] GLUCOSE 99 74 - 99 mg/dL 09/30/2025 1:45 AM [facility] TOTAL PROTEIN 7.0 6.3 - 8.7 g/dL 09/30/2025 1:45 AM [facility] Artify It [facility] ALBUMIN 4.4 3.5 - 5.2 g/dL 09/30/2025 1:45 AM [facility] Artify It [facility] BILIRUBIN TOTAL 0.3 0.0 - 1.2 mg/dL 09/30/2025 1:45 AM [facility] Artify It [facility] ALKALINE PHOSPHATASE 70 40 - 150 U/L 09/30/2025 1:45 AM [facility] Artify It [facility] AST 22 0 - 41 U/L 09/30/2025 1:45 AM [employer] [facility] ALT 27 0 - 41 U/L 09/30/2025 1:45 AM [facility] GFR >60 >=60 mL/min/1.7 3 sq meter 09/30/2025 1:45 AM [facility] Comment:eGFR calculated with 2020 CKD-EPI equation. Vegetarian diet, extremely high or low muscle mass, and may affect results. Cystatin C with Glomerular Filtration Rate is a suitable alternative for these patients. ANION GAP 14 8 - 16 mmol/L 09/30/2025 1:45 AM [employer] [facility] Blood Venipuncture / Unknown 09/30/2025 1:12 AM [employer] 09/30/2025 1:14 AM [employer] Sameer Scherer MD CHEMISTRY ORDERABLES Final Resul t Performing Organization Address City/[facility]/ZIP Co de Phone Number [facility] CLIA# [id number] [place] [address] * (ABNORMAL) POC GLUCOSE (09/30/2025 1:11 AM [employer]) GLUCOSE POC 111(H) 74 - 99 mg/dL 09/30/2025 1:11 AM [employer] [facility] POINT OF CARE SPECIMEN SOURCE, GLUCOSE POC Whole Blood 09/30/2025 1:11 AM [facility] POINT OF CARE Blood, whole 09/30/2025 1:11 AM [employer] 09/30/2025 1:18 AM [employer] Sameer Scherer MD POINT OF CARE TESTING Final Resu lt [facility] POINT OF CARE CLIA # [id number] [place] [address] * PROTIME-INR (09/30/2025 1:11 AM [employer]) PROTIME 13.0 11.5 - 14.7 Seconds 09/30/2025 1:37 AM [facility] [place] IN[place] 1.0 0.9 - 1.1 09/30/2025 1:37 AM [facility] Blood Venipuncture / Unknown 09/30/2025 1:11 AM RUBY [employer] RAILS ENGINEER 09/30/2025 1:15 AM RUBY ON RAILS ENGINEER us Sameer Scherer MD HEMATOLOGY ORDERABLES Final Resu lt [id number] [place] [address] * TYPE AND SCREEN (09/30/2025 1:11 AM RUBY ON RAILS ENGINEER) ABO GROUP B 09/30/2025 2:36 AM RUBY ON RAILS ENGINEER [facility] RH (D) TYPE Positive 09/30/2025 2:36 AM RUBY ON RAILS ENGINEER [facility] ANTIBODY SCREEN Negative 09/30/2025 2:36 AM [facility] Blood Venipuncture / Unknown 09/30/2025 1:11 AM RUBY ON RAILS ENGINEER 09/30/2025 1:15 AM RUBY ON RAILS ENGINEER us Sameer Scherer MD BLOOD BANK ORDERABLES Edited Res ult - Final Performing Organization Address City/[facility]/ZIP Co de Phone Number [facility] [id number] [place] [address] * (ABNORMAL) HEMOGLOBIN A1C (09/30/2025 1:11 AM RUBY ON RAILS ENGINEER) HEMOGLOBIN A1C 6.0(H) <=5.6 % 09/30/2025 3:44 AM RUBY ON RAILS ENGINEER [facility] Artify It [facility] EST. AVG GLUCOSE, A1C 126 mg/dL 09/30/2025 3:44 AM [facility] Blood Venipuncture / Unknown 09/30/2025 1:11 AM RUBY ON RAILS ENGINEER 09/30/2025 1:15 AM RUBY ON RAILS ENGINEER Narrative [facility] - 09/30/2025 3:44 AM RUBY ON RAILS ENGINEER HGB A1C INTERPRETATION NORMAL: <5.7% PRE-DIABETES: 5.7 - 6.4% DIABETES: 6.5% OR GREATER us Shree Naranjo DO CHEMISTRY ORDERABLE S Final Result [facility] CLIA# [id number] [place] [address] * Critical Care (09/30/2025 1:09 AM RUBY ON RAILS ENGINEER) Narrative Sameer Scherer MD - 09/30/2025 1:09 AM RUBY ON RAILS ENGINEER Sameer Scherer MD 09/30/2025 6:35 AM Critical Care Performed by: Sameer Scherer MD Authorized by: Sameer Scherer MD Critical care provider statement: Critical care time (minutes): 31 Critical care time was exclusive of: Separately billable procedures and treating other patients and teaching time Critical care was necessary to treat or prevent imminent or life-threatening deterioration of the following conditions: 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 Relation to Subscriber:Self Name:Steve Bernard Jr. Subscriber ID:Not on file Payer ID:Not on file Type:RX Commercial Address: [place], [place] RX [employer] Commercial Advance Directives For more information, please contact: [phone] * Full Code (Latest Code Status on File) Date Activated Date Inactivated Comments 09/30/2025 2:56 AM 10/01/2025 7:12 PM * Default Full Code - Needs Discussion Date Activated Date Inactivated Comments 09/30/2025 2:17 AM 09/30/2025 2:56 AM Care Teams Visiting Nurse Relationship Specialty Start Date End Date Zaid Fatima DO [address] [address] PCP - General Internal Medicine 09/30/25
--- OUTSIDE RECORDS SUMMARY | 2025-10-16 09:41 | XMS_ITS | Data Portability ---
Author Organization [place] [facility] [employer], Main Office Address [address] [place] [address] Care Team Providers Care Office Chair Assembler Name Role Phone SONA ALANIS Primary Care Provider SONA ALANIS Referring Provider Assessment Encounter Date Assessment Date Assessment LastModified by Organization Details LastModified Time 07/07/2023 07/07/2023 HPI: 48-year-old male came in today for evaluation of his left knee pain. He has been having symptoms on off for a long time. He gets pain stiffness in the knee. He has to limp some days due to soreness by the end of the day. Most pain is over the medial aspect of the knee. He has a history of arthroscopy to the right knee. He states that they did meniscal surgery, he is unaware they had he had had an ACL reconstruction done in the right knee. There is evidence on the x-rays that this was done. Patient has history of AFib and is on Eliquis and therefore not able to take anti-inflammatori es. He also has a severe allergic reaction anti-inflammatori es which causes him quite a bit of swelling throughout his entire body Physical exam: 48-year-old male alert pleasant. He has a mild limp when he walks. He is 5 ft 7 185 lb. He has mild effusion left knee. Range of motion is from 0-135 degrees. He has pahf-az-mgxeraef tenderness over the medial joint line palpation. Minimal pain with patellofemoral grind. No lateral joint line tenderness. Hip range of motion is full without discomfort. There is no edema in either lower extremity. ChloraPrep was used on the skin 20 mg of Kenalog and 3 cc of 0.5% ropivacaine was injected into the left knee. Risk infection discussed. Impression: 48-year-old male who has lgny-pa-rsfkmkzj medial compartment osteoarthritis of left knee. I discussed x-ray findings with him. Again he is not a candidate for anti-inflammatori es. We talked about cortisone injection which he would like to try today. He is tired of the pain in the knee. And I think that would be very reasonable. He tolerated the injection well. He repeat these in the future as often as every 3 months and he will keep that mind. We will see him back as needed. 30 minutes was spent patient more than half of this in cilj-zo-tvuf conversation [email or web address] Not available 07/07/2023 15:27:49 Plan of Treatment Reminders Order Date Submit Date Provider Last Modified By Organization Details Last Modified Time Details Appointments None recorded. Lab None recorded. Referral None recorded. Procedures injection/a spiration joint/bursa (PROC) - in office procedure, administere d by provider 2022 023 [email or web address] In-Office Order, Internal Use Only DO Not Attach Compendium DO Not Attach Compendium, Do Not Delete/merge, [id number] 3 15:21:51 Surgeries None recorded. Imaging XR, knee 2022 023 [email or web address] [facility], [address] [place] [address], [address], [place], [address], 3 16:07:47 Medication Orders Kenalog 10 mg/mL suspension for injection [address] [id number], [address] [facility], [place], [place], [phone], 3 16:07:47 ropivacaine (PF) 5 mg/mL (0.5 %) injection solution [email or web address] [id number], [address] , [place], [place], [phone], 3 16:07:47 Patient TargetsNo targets recorded. Patient InstructionsNo instructions recorded. Reason for Referral None Reported. Results Created Date Observation Date Name Description Value Unit Range Abnormal Flag Note LastModifiedBy Organization Detail LastModifiedTime 07/07/20 23 XR, knee No observ ation record ed. [email or web address] [facility] [address] [facility], [address], [place], [address], 07/07/2023 15:25:34 Result Notes None recorded. Problems Name Problem SNOMED Code Status Onset Date Resolution Date Notes Provider Name and Address Organization Details Recorded Time Pain of left knee joint 869553005174842 Active 2022 Euince Green RMA null, [facility] 3 14:48:00 Problem Notes None recorded. Procedures Surgical History Date Name Laterality Status Provider Name and Address Organization Details Recorded Time open heart surgery completed Eunice Green RMA [facility] 07/07/2023 14:54:32 Ankle completed Eunice Green RMA [facility] 07/07/2023 14:54:41 Knee completed Eunice Green, RMA [facility] 07/07/2023 14:54:47 Imaging Results None recorded. Procedure Notes None recorded. Medical Equipment None Reported. Allergies Allergen ID Allergen Name Allergen Category Reaction Reaction Severity Criticality Documentation Date Start Date Code Code System Note Provider Name and Address Organization Details Recorded Time 02804 Non-stero idal anti-infl ammatory agent (substanc e) medicatio n Not available Not available Not available 07/07/2023 14893 [id number] SNOMED Eunice Green, RMA null, [facility] 3 14:52:53 Medications Name Sig Start Date Stop Date Status Note LastModified by Organization Details LastModified Time atorvastati n 80 mg tablet TAKE 1 TABLET BY MOUTH DAILY active Not Available Not Available No t Available carvedilol 25 mg tablet TAKE 1 TABLET BY MOUTH EVERY 12 HOURS active Not Available Not Available No t Available hydrocodone 5 mg-acetamin ophen 325 mg tablet TAKE ONE TO TWO TABLETS EVERY 6 HOURS NEEDED FOR PAIN 07/06 completed Not Available Not Available Not Available Aspir-Low 81 mg tablet,kenia yed release TAKE ONE TABLET DAILY active Not Available Not Available No t Available tramadol 50 mg tablet Take 1-2 tablets every 8 hours as needed. 07/07 completed Not Available Not Available Not Available oxycodone-a cetaminophe n 5 mg-325 mg tablet TAKE 1 OR 2 TABLETS EVERY 4 TO 6 HOURS NEEDED FOR PAIN 07/07 completed Not Available Not Available Not Available Kenalog 10 mg/mL suspension for injection in office procedure , administe red by provider 2022 active [facility]: 0003- [id number]- 20 Not Available Not Available Not Available hydrocodone 7.5 mg-acetamin ophen 325 mg tablet TAKE 1-2 TABLETS BY MOUTH EVERY 6 HOURS NEEDED 07/07 completed Not Available Not Available Not Available lisinopril 10 mg tablet TAKE 1 TABLET BY MOUTH DAILY active Not Available Not Available No t Available rosuvastati n 40 mg tablet TAKE ONE TABLET DAILY 07/07 completed Not Available Not Available Not Available Brilinta 90 mg tablet TAKE ONE TABLET TWICE DAILY 07/07 completed Not Available Not Available Not Available ropivacaine (PF) 5 mg/mL (0.5 %) injection solution in office procedure , administe red by provider 2022 active [facility] [phone] -[phone]- 01 Not Available Not Available Not Available Eliquis 5 mg tablet TAKE 1 TABLET BY MOUTH TWICE DAILY active Not Available Not Available No t Available Vitals None Recorded Social History Question Answer Notes LastModified by Organizat ion Details LastModified Time Tobacco Smoking Status Current Every Day Smoker Eunice Quiroga, MIA null, [place] [facility] [place] [facility] 07/07/2023 14:54:17 How Much Tobacco Do You Smoke? 1 PPW [email or web address] Information not available 07/07/2023 Sex: Unknown Functional Status Question Answer Note LastModified by Organizat ion Details LastModified Time What is your level of alcohol consumption? Occasional [email or web address] Information not available 07/07/2023 Mental Status None recorded. Family History Relationship Description Onset Age of this Age Resolved Age Notes LastModified by Organization Details LastModified Time Paternal Grandfather Heart disease [email or web address] Not available 2022 14:53:17 Paternal Grandfather Family history of stroke [email or web address] Not available 2022 14:53:32 Paternal Grandfather Family history of malignant neoplasm [email or web address] Not available 2022 14:53:41 Paternal Grandfather Diabetes mellitus [email or web address] Not available 2022 14:53:55 Paternal Grandmother Family history of malignant neoplasm Not available 2022 14:53:41 Paternal Grandmother Diabetes mellitus [email or web address] Not available 2022 14:53:55 Medical History Condition Response HEART DISEASE/HEART PROBLEMS Y STROKE/TIA Y Past Encounters Encounter ID Performer Location Encounter Start Date Encounter Closed Date Diagnosis/Indication Diagnosis SNOMED-CT Code Diagnosis ICD10 Code Diagnosis IMO Codes Diagnosis Note [id number] Titus Conde MD [facility] [address], [address] [address] 07/07/2023 14:20:41 07/07/2023 15:52:39 Pain of left knee joint 8405722763 70154 M25.562 Health Concerns Section Related Observation LastModified by Organization Detai ls LastModified Time None Recorded Concern Status LastModified by Organization Details LastModified Time None Recorded Advance Directives Directive None Recorded Payers Insurance Date Sequence Insurance Name Policy Number Policy Ramirez Covered Member ID Ramirez Member ID Guarantor Name 07/11/2023 1 [facility] Steve Bernard [id number] Steve Bernard
[2025-10-16 19:07] LABS: Iron 77 ug/dL (49-181)
[2025-10-16 19:26] LABS: Percent Iron Saturation 23 % (20-50)
[2025-10-16 19:52] LABS: Ferritin 84.00 ng/mL (11.1-264)
[2025-10-17 11:08] LABS: LH 3.6 mIU/mL (1.7-8.6)
[2025-10-19 10:08] LABS: Free Testosterone (Direct) 8.2 pg/mL (7.2-24.0)
== END 2025-10-16 09:35 | disposition home or self-care (01) ==
LOC: ANHGOSHLAB 09:35
PROVIDERS: PCP Internal Medicine; Visit Provider Internal Medicine
DX: E29.1 Testicular hypofunction (principal); R68.82 Decreased libido; F33.1 Major depressive disorder, recurrent, moderate
CPT/HCPCS: 36415; 82728; 83002; 83540; 83550; 84146; 84402; 84403